=== PATIENT | female | born 1935 ===

== ENCOUNTER 2017-02-19 19:39 | Observation (INO) | payer MEDICARE, MEDICAID ==
--- NOTE | 2017-02-19 19:57 | ED PDOC ---
Arrival/HPI - General Time Seen by Provider: 02/19/17 19:43 Historian: Family (Son) EM Caveat: Dementia - History of Present Illness Narrative History of Present Illness (Text): 02/19/17 19:54 An 81 year old female whose past medical history includes Alzheimer's disease, presents to the emergency department as per son following brief episode of shortness of breath. The patient's son states that at baseline, the patient does not speak . ROS/HPI limited due to patient's dementia.Pt. had taken her liquid meds for her seizure disorder prior.No LOC.No seizure activity. Time/Duration: Prior to Arrival Symptom Onset: Sudden Symptom Course: Unchanged Activities at Onset: Rest, Light Context: Home Past Medical History - Provider Review Nursing Documentation Reviewed: Yes Family/Social History - Physician Review Nursing Documentation Reviewed: Yes Family/Social History: No Known Family HX Allergies/Home Meds Allergies/Adverse Reactions: Allergies No Known Allergies Allergy (Verified 02/19/17 19:53) Home Medications: Home Meds Medication Instructions Recorded Confirmed Unobtainable 02/20/17 02/20/17 Review of Systems - Review of Systems Systems not reviewed;Unavailable: Dementia (Alzheimer's. At baseline, patient does not speak. (normal)) Physical Exam - Physical Exam Physical Exam Limitations: Other (Dementia. At baseline, patient does not speak. ) Vital Signs Reviewed: Yes Vital Signs Temp Pulse Resp BP Pulse Ox 02/19/17 19:54 20 96 02/19/17 19:47 97.9 F 88 20 146/90 96 Temperature: Afebrile Blood Pressure: Normal Pulse: Regular Respiratory Rate: Normal Appearance: Positive for: Well-Appearing, Non-Toxic, Comfortable Pain Distress: None Mental Status: Positive for: Alert and Oriented X 3 - Systems Exam Head: Present: Atraumatic Pupils: Present: PERRL Extroacular Muscles: Present: EOMI Conjunctiva: Present: Normal Mouth: Present: Moist Mucous Membranes Neck: Present: Normal Range of Motion Respiratory/Chest: Present: Clear to Auscultation, Good Air Exchange. No: Respiratory Distress, Accessory Muscle Use Cardiovascular: Present: Regular Rate and Rhythm, Normal S1, S2. No: Murmurs Abdomen: Present: Normal Bowel Sounds. No: Tenderness, Distention, Peritoneal Signs Back: Present: Normal Inspection Upper Extremity: Present: Normal Inspection. No: Cyanosis, Edema Lower Extremity: Present: Normal Inspection. No: Edema Neurological: No: Speech Normal (non-verbal (dementia, normal)) Skin: Present: Warm, Dry, Normal Color. No: Rashes Psychiatric: Present: Alert (Pt alert, awake, non communicative (normal)) Medical Decision Making ED Course and Treatment: 02/19/17 20:00 Impression: An 81 year old female with dementia brought in by son after taking her medication and she began to tear up, cough, and have difficulty breathing. Plan: -- EKG -- Chest X-ray -- Labs -- Reassess and disposition Progress Notes: reviewed EKG, sinus tachycardia at 103 bpm. Incomplete RBBB. Non-specific ST/T wave changes. 02/19/17 21:29 Reviewed radiology, Chest X-ray shows no acute processes. 02/19/17 22:45 Labs reviewed. Elevataed d-dimer: 1.66 noted. CTA Chest ordered. 02/20/17 00:26 Reviewed CTA Chest, shows: Pulmonary arteries: Unremarkable. No pulmonary embolism. Aorta: No acute findings. No thoracic aortic aneurysm. Lungs: Unremarkable. No mass. No consolidation. Pleural space: No significant effusion. No pneumothorax. Heart: Unremarkable. No cardiomegaly. No significant pericardial effusion. No evidence of RV dysfunction. Bones/joints: No acute fracture. No dislocation. Soft tissues: Unremarkable. Lymph nodes: Unremarkable. No enlarged lymph nodes. IMPRESSION: No PE, as detailed above. 02/20/17 00:[address] Morales, who is aware and agrees with plan. Accepts pt in her service. Pt will go to Telemetry observation for dyspnea and seizure disorder. - Lab Interpretations Lab Results: 02/19/17 20:30 02/19/17 20:30 Lab Results 02/19/17 20:30: WBC 5.9, RBC 3.90, Hgb 11.6 L, Hct 34.9 L, MCV 89.5, MCH 29.7, MCHC 33.2, RDW 14.9 H, Plt Count 266, MPV 10.0 02/19/17 20:30: Sodium 140, Potassium 4.6, Chloride 103, Carbon Dioxide 25, Anion Gap 17, BUN 22 H, Creatinine 0.8, Est GFR ( Amer) > 60, Est GFR ( Non-Af Amer) > 60, Random Glucose 114 H, Calcium 8.6, Total Bilirubin 0.3, AST 49 H, ALT 31, Alkaline Phosphatase 92, Lactate Dehydrogenase 637, Total Creatine Kinase 54, Troponin I < 0.01, NT-Pro-B Natriuret Pep 342, Total Protein 8.1, Albumin 4.2, Globulin 3.9, Albumin/Globulin Ratio 1.1 02/19/17 20:30: PT 10.7, INR 0.99, APTT 26.8, D-Dimer, Quantitative 1.66 H I have reviewed the lab results: Yes - RAD Interpretation Radiology Orders: 02/19/17 19:56 CHEST PORTABLE [RAD] Stat 02/19/17 22:45 ANGIO CHEST PE PROTOCOL [CT] Stat - EKG Interpretation Interpreted by ED Physician: Yes Type: 12 lead EKG - Medication Orders Current Medication Orders: Sodium Chloride (Sodium Chloride 0.9%) 1,000 mls @ 100 mls/hr IV .Q10H JENNIFER Last Admin: 02/19/17 23:14 Dose: 100 mls/hr eMAR Start Stop Document 02/19/17 23:14 SS (Rec: 02/19/17 23:15 SS [id number]) Intravenous Solution Start Date 02/19/17 Start Time 23:14 Discontinued Medications Iohexol (Omnipaque 350 100 Ml) Confirm Administered Dose 350 mg .ROUTE .STK-MED ONE Stop: 02/19/17 22:49 - Scribe Statement The provider has reviewed the documentation as recorded by the Madeline Marino Provider Scribe Attestation: All medical record entries made by the Scribe were at my direction and personally dictated by me. I have reviewed the chart and agree that the record accurately reflects my personal performance of the history, physical exam, medical decision making, and the department course for this patient. I have also personally directed, reviewed, and agree with the discharge instructions and disposition. Disposition/Present on Arrival - Present on Arrival Any Indicators Present on Arrival: No History of DVT/PE: No History of Uncontrolled Diabetes: No Urinary Catheter: No History of Decub. Ulcer: No History Surgical Site Infection Following: None - Disposition Have Diagnosis and Disposition been Completed?: Yes Diagnosis: Paroxysmal dyspnea, Seizure disorder Disposition: HOSPITALIZED Disposition Time: 01:32 Patient Plan: Observation Patient Problems: Current Active Problems Problem Status Onset Paroxysmal dyspnea Acute Seizure disorder Acute Condition: STABLE Referrals: Barrett Black MD [Primary Care Provider] - Follow up with primary
[2017-02-19 20:54] LABS: ALB/GLOB RATIO 1.1 (1.1-1.8); ALKALINE PHOSPHATASE 92 U/L (38-126); ALT/SGPT 31 U/L (7-56); AST/SGOT 49 U/L (14-36); BILIRUBIN,TOTAL 0.3 mg/dL (0.2-1.3); BLOOD UREA NITROGEN 22 mg/dL (7-21); CALCIUM 8.6 mg/dL (8.4-10.5); CARBON DIOXIDE 25 mmol/L (21-33); CHLORIDE 103 mmol/L (98-107); GFR AFRICAN-AMERICAN > 60; GLUCOSE,RANDOM 114 mg/dL (70-110); POTASSIUM 4.6 mmol/L (3.6-5.0); SODIUM 140 mmol/L (132-148); TOTAL PROTEIN 8.1 g/dL (5.8-8.3)
[2017-02-19 21:07] LABS: TROPONIN I < 0.01 ng/mL
[2017-02-19 21:09] LABS: HEMATOCRIT 34.9 % (36.0-48.0); MEAN CELL VOLUME 89.5 fl (80.0-105.0); MEAN CORPUSCULAR HEMOGLOBIN 29.7 pg (25.0-35.0); MEAN CORPUSCULAR HGB CONC 33.2 g/dl (31.0-37.0); RED CELL DISTRIBUTION WIDTH 14.9 % (11.5-14.5); WHITE BLOOD COUNT 5.9 10^3/ul (4.5-11.0)
[2017-02-19 21:14] LABS: D DIMER 1.66 mg/L FEU (0-0.50); INR 0.99 (0.93-1.08); PARTIAL THROMBOPLASTIN TIME 26.8 Seconds (23.7-30.8)
[2017-02-19] MEDS ORDERED: Iohexol 350 MG/100 ML VIAL ONE (22:48)
[2017-02-19] MEDS: Sodium Chloride 0.9% 1,000 ML IV SCH (23:14)
--- NOTE | 2017-02-20 00:18 | CT ---
EXAM: CT Angiography Chest With Intravenous Contrast CLINICAL HISTORY: 81 years old, female; Pain; Chest pain; Type not specified; Additional info: SOB TECHNIQUE: Axial computed tomographic angiography images of the chest with intravenous contrast using pulmonary embolism protocol. All CT scans at this facility use one or more dose reduction techniques, viz.: automated exposure control; ma/kV adjustment per patient size (including targeted exams where dose is matched to indication; i.e. head); or iterative reconstruction technique. MIP reconstructed images were created and reviewed. Coronal and sagittal reformatted images were created and reviewed. CONTRAST: 100 mL of OMNI 350 administered intravenously. COMPARISON: DX - CHEST PORTABLE 02/19/2017 8:26:54 PM FINDINGS: Pulmonary arteries: Unremarkable. No pulmonary embolism. Aorta: No acute findings. No thoracic aortic aneurysm. Lungs: Unremarkable. No mass. No consolidation. Pleural space: No significant effusion. No pneumothorax. Heart: Unremarkable. No cardiomegaly. No significant pericardial effusion. No evidence of RV dysfunction. Bones/joints: No acute fracture. No dislocation. Soft tissues: Unremarkable. Lymph nodes: Unremarkable. No enlarged lymph nodes. IMPRESSION: No PE, as detailed above.
[2017-02-20 05:20] VITALS: O2SAT 100
[2017-02-20] MEDS: Sodium Chloride 0.9% 1,000 ML IV SCH (08:45)
--- NOTE | 2017-02-20 11:01 | RAD ---
HISTORY: sob COMPARISON: Concurrent chest CT also performed 02/19/2017 with contrast. FINDINGS: LUNGS: No active pulmonary disease. PLEURA: No significant pleural effusion identified, no pneumothorax apparent. CARDIOVASCULAR: Normal. OSSEOUS STRUCTURES: No significant abnormalities. VISUALIZED UPPER ABDOMEN: Normal. OTHER FINDINGS: A moderate gas filled hiatal hernia is identified with the stomach apparently distended with retained gas as well incidentally. IMPRESSION: No acute cardiopulmonary disease is appreciable at this time. However, a moderate hiatal hernia is appreciated and there is incidental distension of the stomach with gas. This is also seen in separate and chest CT with contrast 02/19/2017.
[2017-02-20 12:36] VITALS: BP 126/74; PULSE 74; RESP 20; TEMP 98.1
--- NOTE | 2017-02-20 15:15 | CON ---
DATE: 02/20/2017 CONSULT SERVICE: Cardiology. REASON FOR CONSULTATION: Cardiac evaluation, had shortness of breath and dyspnea. BRIEF CLINICAL HISTORY: This is an 81-year-old female with past medical history significant for dementia, mostly bed bound with a total care, daughter named Shanti is at bedside, information obtained from the daughter. History of Alzheimer's disease, presented to the emergency room after having choking at home and then feels congested and with short of breath, who brought her. History of seizure disorder. The patient's daughter, Shanti at the bedside she takes care and the patient's total care. Mostly, she sits on the rocking chair and did not get out from out of home for longtime and demented with her total care. PAST MEDICAL HISTORY: Significant for Alzheimer's disease and history of seizure disorder and totally cared by the daughter. CURRENT MEDICATIONS: The patient's daughter states that she take some seizure medication. SOCIAL HISTORY: Denies any history of alcohol abuse. PAST SURGICAL HISTORY: Significant for cholecystectomy many, many years ago. The patient has dementia since 2004, is progressively worsening. REVIEW OF SYSTEMS: As per HPI. PHYSICAL EXAMINATION VITAL SIGNS: Temperature afebrile, heart rate 82, and blood pressure 130/80. HEENT: PERRLA. Extraocular muscles intact. NECK: Supple. No carotid bruits or thyromegaly. CHEST: Clear to auscultation. HEART: S1 and S2 regular. ABDOMEN: Soft. EXTREMITIES: Clubbing and cyanosis negative. DIAGNOSTIC DATA: EKG shows a normal sinus, incomplete right bundle, right ventricular hypertrophy and no acute ST-T changes noted. LABORATORY DATA: Blood workup as follows: WBC 5.9, hemoglobin 11.6, hematocrit 34.9, and platelet count 266. Chemistry shows sodium 140, potassium 4.6, chloride 103, carbon dioxide is 22, anion gap of 25, BUN 17, and creatinine is 0.8. Total protein is 0.01. BNP is 342. IMPRESSION: An 81-year-old female with a past medical history of progressively worsening dementia since 2004 with a total care at home and yesterday had choking sensation was being said and since the patient brought here and feels congested according to family, and history of seizure disorder. Denies any prior episode of chest pain or denies any recent history of rubbing her chest, as did not notice by the daughter. The patient is unable to give any history and information obtained from the daughter, who is sitting at the bedside, name Shanti, who brought here after having choking sensation. RECOMMENDATIONS: We will get lipid profile, TSH, hemoglobin A1c and we will get echo, if the patient allows. If the patient becomes resistant of suggest to discontinue telemetry and pending further Neuro and Pulmonary evaluation, discharge planning. Marty Carrillo MD
[2017-02-20] MEDS ORDERED: levETIRAcetam 500 mg/5ml UD cups PO SCH (18:00)
--- NOTE | 2017-02-20 18:45 | CARD ---
APPROVED REPORT EXAM: Two-dimensional and M-mode echocardiogram with Doppler and color Doppler. INDICATION Chest Pain LVFX 2D DIMENSIONS Left Atrium (2D)3.6 (1.6-4.0cm)IVSd0.7 (0.7-1.1cm) LVDd4.6 (3.9-5.9cm)PWd0.8 (0.7-1.1cm) LVDs2.9 (2.5-4.0cm)FS (%) 36.9 % LVEF (%)66.9 (>50%) M-Mode DIMENSIONS Aortic Root3.50 (2.2-3.7cm)Aortic Cusp Exc.1.60 (1.5-2.0cm) Aortic Valve AoV Peak Dhqesxgb576.0cm/sAoV VTI43.0cmAO Peak GR.16mmHg LVOT Peak Excvowvk511.0cm/sLVOT VTI37.80cmAO Mean GR.6mmHg AI P 1/2 Twlz813td Mitral Valve MV E Pigfmulf066.0cm/sMV A Dtweatub66.4cm/sE/A ratio1.2 TDI Lateral E' Peak V12.80cm/sMedial E' Peak V6.82cm/sE/Lateral E'8.0 E/Medial E'15.0 Pulmonary Valve PV Peak Zfpqtpzu33.1cm/sPV Peak Grad.2mmHg Tricuspid Valve TR Peak Pyrdwuay002as/sRAP QHDGQQKE42jyJjAI Peak Gr.22mmHg [id number] LEFT VENTRICLE The left ventricle is normal size. There is normal left ventricular wall thickness. The left ventricular function is normal.EF-55-60% There is normal LV segmental wall motion. The left ventricular diastolic function is normal. No left ventricle thrombus noted on this study. There is no ventricular septal defect visualized. There is no left ventricular aneurysm. RIGHT VENTRICLE The right ventricle is normal size. There is normal right ventricular wall thickness. The right ventricular systolic function is normal. ATRIA The left atrium size is normal. The right atrium size is normal. AORTIC VALVE The aortic valve is calcified but opens well. There is mild aortic regurgitation. There is no aortic valvular stenosis. There is no aortic valvular vegetation. MITRAL VALVE The mitral valve is thickened but opens well. Mitral annular calcification is mild. Mitral regurgitation is mild to moderate There is no mitral valve stenosis. There is no evidence of mitral valve prolapse. TRICUSPID VALVE The tricuspid valve leaflets are thickened , but open well. There is mild to moderate tricuspid regurgitation.RVSP-32 mmof Hg. There is no tricuspid valve stenosis. There is no tricuspid valve prolapse or vegetation. PULMONIC VALVE The pulmonic valve is not well visualized. GREAT VESSELS The aortic root is normal in size. The ascending aorta is normal in size. The pulmonary artery is normal. The IVC was not visualized. PERICARDIAL EFFUSION There is no pleural effusion. There is no pericardial effusion. <Conclusion> NormalChamber Size. EF-55-60% There is mild aortic regurgitation. Mitral regurgitation is mild to moderate There is mild to moderate tricuspid regurgitation.RVSP-32 mmof Hg. The IVC was not visualized. There is no pericardial effusion. No trhrombus noted.
--- NOTE | 2017-02-20 19:58 | CON ---
PULMONARY CONSULTATION DATE: 02/20/2017 REFERRING PHYSICIAN: Trixie Morales MD REASON FOR CONSULT: Cough and shortness of breath. HISTORY OF PRESENT ILLNESS: This is an 81 years old female who has advanced Alzheimer type dementia according to family. Apparently, family found her with the shortness of breath, had some oral secretion unable to clear, and brought into emergency room. During that process, she is able to cough and clear some of the secretions. Presently, she is lying in the bed and family is at bedside. According to family that is her usual status. They deny any seizure activity. No nausea. No vomiting. No diarrhea reported. PAST MEDICAL HISTORY: Alzheimer type dementia and seizure disorder. ALLERGIES: NONE KNOWN. SOCIAL HISTORY: No smoker. No drinker. FAMILY HISTORY: Not significant cardiopulmonary disease reported. REVIEW OF SYSTEMS: As per history of present illness, an episode of choking. Unable to clear secretion and short of breath, which later on improved, but there is no hemoptysis or hematemesis. No hematuria. No leg swelling. PHYSICAL EXAMINATION: GENERAL: Lying in the bed, no acute distress. VITAL SIGNS: Temperature is 98, heart rate is 74, respiratory rate is 20, blood pressure 126/74, and pulse oximetry 100% on room air. HEENT: Moist mucous membranes. No oral thrush. NECK: Supple. No JVD. LUNGS: Diffused scattered rhonchi. Overall, fair airflow. HEART: S1 and S2. ABDOMEN: Soft, nontender. No organomegaly. EXTREMITIES: There is no edema. NEUROLOGICAL: Awake, alert, nonverbal, does not follow commands, confused. LABORATORY DATA: Shows hemoglobin 11.6, hematocrit 34.9, WBC 5.9, and platelets 266. INR 0.99. PTT is 26. D-dimer is 1.6. Sodium 140, potassium 4.6, chloride 103, bicarbonate 25, BUN 22, creatinine 0.8, glucose 114, calcium 8.6, AST 49, ALT 31, alkaline phosphatase is 92, total protein less than 0.01, and albumin is 4.2. She had a CAT scan of the chest done on arrival in the emergency room, which is negative for any PE. No infiltrate or effusion reported. Her echocardiogram done report is pending. IMPRESSION AND PLAN: Alzheimer type dementia, history of seizure disorder, probably had an episode of aspiration, could not clear it for a while, but finally able to cough it out and clear it. I spoke to family at bedside in detail historically Alzheimer type dementia progress to oropharyngeal dysphagia. We will have speech therapy see the patient and evaluate. Keep head elevated at 45 degrees. She has a mild anemia. We will need outpatient anemia workup and informed about that to the family. Marty Suh MD
--- NOTE | 2017-02-20 22:00 | CON ---
HISTORY OF PRESENT ILLNESS: This is an 81-year-old female with past medical history of dementia, Alzheimer type and also has a history of seizure and son at bedside who says the patient had shortness of breath and the patient does not speak and limited history because of dementia. PAST MEDICAL HISTORY: Seizure and Alzheimer's disease. ALLERGIES: NO KNOWN DRUG ALLERGY. SOCIAL HISTORY: The patient lives at home with the daughter. PHYSICAL EXAMINATION: VITAL SIGNS: Blood pressure 146/90. HEENT: Normocephalic, atraumatic. NECK: Supple. NEUROLOGIC: Cranial nerves II through XII are tested. Pupils reactive. No spontaneous movement of the extremities noted. Mild rigidity was also noted in the upper extremities. Deep tendon reflex is 1+. Both plantars are downgoing. Sensory appears intact. Cerebellar and gait, deferred. IMPRESSION: 1. Seizure disorder. 2. Alzheimer's disease/dementia. PLAN: The patient will continue present medication and we will follow up. We will start her on Keppra and Aricept. Ronald Galicia MD
--- NOTE | 2017-02-20 23:22 | CARD ---
APPROVED REPORT EKG Measurement Heart [id number] <Conclusion> Sinus tachycardia Incomplete right bundle branch block Possible Right ventricular hypertrophy ST & T wave abnormality, consider inferior ischemia Abnormal ECG
== END 2017-02-20 16:32 | disposition home or self-care (01) ==
LOC: ED 19:39 → ERH 02-20 01:33 → 2RNO 02-20 07:10
PROVIDERS: ADMIT Internal Medicine; ATTEND Internal Medicine
DX: R06.00 Dyspnea, unspecified (principal); G40.909 Epilepsy, unspecified, not intractable, without status epilepticus; D64.9 Anemia, unspecified; G30.9 Alzheimer's disease, unspecified; F02.80 Dementia in other diseases classified elsewhere, unspecified severity, without behavioral disturbance, psychotic disturbance, mood disturbance, and anxiety; R00.0 Tachycardia, unspecified; I45.10 Unspecified right bundle-branch block; Z74.01 Bed confinement status; Z90.49 Acquired absence of other specified parts of digestive tract; I51.7 Cardiomegaly
CPT/HCPCS: 71010; 71275; 80053; 82550; 83615; 83880; 84484; 85027; 85378; 85610; 85730; 93005; 93306; 99285; G0378; J7040; Q9967

== ENCOUNTER 2017-06-06 10:50 | Emergency (ER) | payer MEDICARE, MEDICAID ==
[2017-06-06 11:10] VITALS: TEMP 99.4; O2SAT 100
[2017-06-06 11:11] VITALS: BMI 19.3
--- NOTE | 2017-06-06 11:52 | ED PDOC ---
Arrival/HPI - General Chief Complaint: Upper Extremity Problem/Injury Time Seen by Provider: 06/06/17 11:50 Historian: Family (Daughter and son) - History of Present Illness Narrative History of Present Illness (Text): 06/06/17 11:52 This 81 yo female with pmh dementia, seizures, is brought to this ED by daughter and son for evaluation left upper chest bruise, and swelling x 1 day. Daughter stated patient did not have this yesterday. Daughter admits lifting patient from bed to wheelchair often. Denies fall or trauma. Context: Home Past Medical History - Provider Review Nursing Documentation Reviewed: Yes - Reproductive Menopause: Yes - Neurological Hx Alzheimer's Disease: Yes Hx Dementia: Yes Hx Seizures: Yes (feb 2017) - Musculoskeletal/Rheumatological Hx Falls: No - Psychiatric Hx Substance Use: No Family/Social History - Physician Review Nursing Documentation Reviewed: Yes Family/Social History: Other (noncontributory) Smoking Status: Never Smoked Hx Alcohol Use: No Hx Substance Use: No Allergies/Home Meds Allergies/Adverse Reactions: Allergies No Known Allergies Allergy (Verified 02/19/17 19:53) Home Medications: Home Meds Medication Instructions Recorded Confirmed Docusate [Colace] 1 cap PO DAILY 06/06/17 06/06/17 Multivitamin [Daily Maribeth] 1 tab PO DAILY 06/06/17 06/06/17 Tobramycin/Dexamethasone [Tobradex 1 drop EACHEYE DAILY 06/06/17 06/06/17 St Eye Drops] Review of Systems - Review of Systems Systems not reviewed;Unavailable: Other (Information taken from Daughter and son ) Constitutional: Normal. absent: Fatigue, Weight Change, Fevers, Night Sweats Eyes: Normal ENT: Normal Respiratory: Normal. absent: SOB Cardiovascular: Normal. absent: Chest Pain, Palpitations Gastrointestinal: Normal. absent: Abdominal Pain, Nausea, Vomiting Genitourinary Female: Normal. absent: Frequency, Vaginal Bleeding, Vaginal Discharge Musculoskeletal: Other (see hpi) Skin: Normal Neurological: Normal Endocrine: Normal Hemo/Lymphatic: Normal Psychiatric: Normal Physical Exam Vital Signs Temp Pulse Resp BP Pulse Ox 06/06/17 13:00 78 18 168/71 H 100 06/06/17 11:10 99.4 F 73 18 114/38 L 100 Temperature: Afebrile Blood Pressure: Normal Pulse: Regular Respiratory Rate: Normal Appearance: Positive for: Well-Appearing, Non-Toxic, Comfortable Pain Distress: None - Systems Exam Head: Present: Atraumatic, Normocephalic Pupils: Present: PERRL Extroacular Muscles: Present: EOMI Conjunctiva: Present: Normal Mouth: Present: Moist Mucous Membranes Neck: Present: Normal Range of Motion Respiratory/Chest: Present: Clear to Auscultation, Good Air Exchange, Other ((+ ) large swelling with mild ecchymosis left upper chest near left shoulder. No deformity). No: Respiratory Distress, Accessory Muscle Use Cardiovascular: Present: Regular Rate and Rhythm, Normal S1, S2. No: Murmurs Abdomen: Present: Normal Bowel Sounds. No: Tenderness, Distention, Peritoneal Signs Back: Present: Normal Inspection Upper Extremity: Present: Normal Inspection. No: Cyanosis, Edema Lower Extremity: Present: Normal Inspection. No: Edema Neurological: Present: GCS=15, CN II-XII Intact, Speech Normal Skin: Present: Warm, Dry, Normal Color. No: Rashes Psychiatric: Present: Alert, Other ((+) awake) Medical Decision Making ED Course and Treatment: 06/06/17 13:46 Re-evaluation. Patient feels better. Discussed results and plan with patient who expresses understanding. All questions answered and there is agreement with the plan to discharge home with instructions. Patient stable for discharge. Return if symptoms persist or worsen. Re-evaluation Time: 13:46 Reassessment Condition: Re-examined, Improved - RAD Interpretation Narrative RAD Interpretations (Text): 06/06/17 13:38 Patient Name / ID : SHERLYN VALLEJO / [id number] Exam Date : 06/06/2017 12:10:45 ( Approved ) Study Comment : Sex / Age : F / 81Y Creator : Stanton Braun MD Dictator : Stanton Braun MD Drawbench Operator : Manager : Stanton Braun MD Approver2 : Report Date : 06/06/2017 13:16:46 My Comment : PROCEDURE: CT Chest without contrast HISTORY: left upper chest bruise/swelling r/o fx COMPARISON: None. TECHNIQUE: Contiguous axial images were obtained through the chest without intravenous contrast enhancement. Sagittal and coronal reconstructions were performed. Radiation dose (DLP): 221 mGy-cm. This CT exam was performed using one or more of the following dose reduction techniques: Automated exposure control, adjustment of the mA and/or kV according to patient size, and/or use of iterative reconstruction technique. FINDINGS: LUNGS: There is a small amount of pleural parenchymal scarring at the right lung base and the right lung apex. This is unchanged. MEDIASTINUM: Unremarkable thoracic aorta. No aneurysm. Normal sized heart. Main pulmonary artery unremarkable. No vascular congestion. No lymphadenopathy. PLEURA: No pleural fluid. No pneumothorax. BONES: No fracture. No destructive lesion. UPPER ABDOMEN: Moderate size hiatal hernia OTHER FINDINGS: There is severe edema and swelling of the left pectoral muscle. Subcutaneous edema is seen in the left axilla. There is no associated rib fracture IMPRESSION: Severe edema and swelling of the left pectoral muscle. No associated rib or shoulder fracture 06/06/17 13:50 Shoulder x-rays: no fx Radiology Orders: 06/06/17 11:50 CHEST W/O CONTRAST [CT] Stat 06/06/17 11:51 SHOULDER LEFT [RAD] Stat Disposition/Present on Arrival - Present on Arrival Any Indicators Present on Arrival: No History of DVT/PE: No History of Uncontrolled Diabetes: No Urinary Catheter: No History of Decub. Ulcer: Yes History Surgical Site Infection Following: None - Disposition Have Diagnosis and Disposition been Completed?: Yes Diagnosis: Hematoma of chest wall Disposition: HOME/ ROUTINE Disposition Time: 13:52 Patient Plan: Discharge Condition: GOOD Discharge Instructions (ExitCare): Hematoma (ED) Additional Instructions: Call private doctor for follow up visit. Apply cold compress over the area of bruise for 2 days, then apply warmth compress as needed. Call Orthopedist for revaluation. Return to emergency if symptoms worsen. Referrals: Barrett Black MD [Primary Care Provider] - Follow up with primary Forms: [employer] (Danish)
--- NOTE | 2017-06-06 12:33 | RAD ---
PROCEDURE: Radiographs of the Left Shoulder HISTORY: pain COMPARISON: No prior. FINDINGS: BONES: No fracture or definite destructive bony lesion appreciated. JOINTS: No subluxation or dislocation identified. The acromioclavicular and glenohumeral joints appear mildly degenerated with osteophytes developed at both including at the inferior margins of the acromioclavicular joint. Cortical sclerosis and joint space narrowing also identified SOFT TISSUES: At both joints. OTHER FINDINGS: None. IMPRESSION: Degenerative joint disease appreciate without fracture or dislocation appreciated.
--- NOTE | 2017-06-06 13:18 | CT ---
PROCEDURE: CT Chest without contrast HISTORY: left upper chest bruise/swelling r/o fx COMPARISON: None. TECHNIQUE: Contiguous axial images were obtained through the chest without intravenous contrast enhancement. Sagittal and coronal reconstructions were performed. Radiation dose (DLP): 221 mGy-cm. This CT exam was performed using one or more of the following dose reduction techniques: Automated exposure control, adjustment of the mA and/or kV according to patient size, and/or use of iterative reconstruction technique. FINDINGS: LUNGS: There is a small amount of pleural parenchymal scarring at the right lung base and the right lung apex. This is unchanged. MEDIASTINUM: Unremarkable thoracic aorta. No aneurysm. Normal sized heart. Main pulmonary artery unremarkable. No vascular congestion. No lymphadenopathy. PLEURA: No pleural fluid. No pneumothorax. BONES: No fracture. No destructive lesion. UPPER ABDOMEN: Moderate size hiatal hernia OTHER FINDINGS: There is severe edema and swelling of the left pectoral muscle. Subcutaneous edema is seen in the left axilla. There is no associated rib fracture IMPRESSION: Severe edema and swelling of the left pectoral muscle. No associated rib or shoulder fracture
[2017-06-06 14:01] VITALS: BP 157/79; PULSE 77; RESP 16
== END 2017-06-06 14:48 | disposition home or self-care (01) ==
LOC: ED 10:50
DX: S20.212A Contusion of left front wall of thorax, initial encounter (principal); X58.XXXA Exposure to other specified factors, initial encounter; Y92.89 Other specified places as the place of occurrence of the external cause

== ENCOUNTER 2017-06-30 15:13 | Emergency (ER) | payer MEDICARE, MEDICAID ==
[2017-06-30 15:25] VITALS: BMI 22.2
--- NOTE | 2017-06-30 15:33 | ED PDOC ---
Arrival/HPI - General Time Seen by Provider: 06/30/17 15:23 Historian: Patient, Family, EMS - History of Present Illness Narrative History of Present Illness (Text): 06/30/17 15:26 81 y/o female, pmh including demantia and seizure, nkda, limited HPI can be obtained as the patient has chronic demantia, biba with the family saying that the patient has been coughing with chest congestion x 3 days and fever x 1 day with tmax 101F. As per family, patient resides with them and there is +sick contact at home with URI symptoms. As per family, there is no change in energy level. Pt. eats and drinking well, diaper change amount and quantity is the same as usual healthy state, no nausea or vomiting, no night sweat, no dizziness , no rash, no numbness or tingling, no other medical or psychological complaints. Past Medical History - Provider Review Nursing Documentation Reviewed: Yes - Neurological Hx Alzheimer's Disease: Yes Hx Dementia: Yes Hx Seizures: Yes (feb 2017) - Musculoskeletal/Rheumatological Hx Falls: No - Psychiatric Hx Substance Use: No Family/Social History - Physician Review Nursing Documentation Reviewed: Yes Family/Social History: Unknown Family HX Smoking Status: Never Smoked Hx Alcohol Use: No Hx Substance Use: No Allergies/Home Meds Allergies/Adverse Reactions: Allergies No Known Allergies Allergy (Verified 02/19/17 19:53) Review of Systems - Review of Systems Systems not reviewed;Unavailable: Dementia Constitutional: Fevers. absent: Fatigue Eyes: absent: Vision Changes ENT: absent: Hearing Changes Respiratory: Cough, Sputum. absent: SOB, Wheezing Cardiovascular: absent: Chest Pain, Syncope Gastrointestinal: absent: Abdominal Pain, Diarrhea, Nausea, Vomiting Skin: absent: Rash, Pruritis, Ulcer, Cellulitis Physical Exam Vital Signs Reviewed: Yes Vital Signs Temp Pulse Resp BP Pulse Ox 06/30/17 19:37 80 17 117/80 96 06/30/17 18:34 85 17 117/72 95 06/30/17 17:27 79 17 118/70 96 06/30/17 15:38 97.9 F 81 20 116/67 95 Temperature: Afebrile Blood Pressure: Normal Pulse: Regular Respiratory Rate: Normal Appearance: Positive for: Well-Appearing, Non-Toxic, Comfortable Pain Distress: None Mental Status: Positive for: Alert and Oriented X 3 - Systems Exam Head: Present: Atraumatic, Normocephalic Pupils: Present: PERRL Extroacular Muscles: Present: EOMI Conjunctiva: Present: Normal Mouth: Present: Moist Mucous Membranes Nose (External): Present: Atraumatic. No: Abrasion, Contusion, Laceration Nose (Internal): Present: Normal Inspection, No Active Bleeding. No: Rhinorrhea , Septal Hematoma, Epistaxis Neck: Present: Normal Range of Motion, Trachea Midline. No: Meningeal Signs, MIDLINE TENDERNESS, Paraspinal Tenderness, Lymphadenopathy Respiratory/Chest: Present: Clear to Auscultation, Good Air Exchange, Rales (RLL ), Rhonchi (RLLE). No: Respiratory Distress, Accessory Muscle Use, Wheezes, Decreased Breath Sounds, Retracting Cardiovascular: Present: Regular Rate and Rhythm, Normal S1, S2. No: Murmurs Abdomen: Present: Normal Bowel Sounds. No: Tenderness, Distention, Peritoneal Signs, Rebound, Guarding Back: Present: Normal Inspection Upper Extremity: Present: Normal Inspection. No: Cyanosis, Edema Lower Extremity: Present: Normal Inspection. No: Edema Neurological: Present: Motor Func Grossly Intact, Other (limited physical examination can be performed, limited neurological examination can be performed. ) Skin: Present: Warm, Dry, Normal Color. No: Rashes Psychiatric: Present: Alert, Oriented x 3, Normal Insight, Normal Concentration Medical Decision Making ED Course and Treatment: 06/30/17 15:42 -labs/ua/rapid flu -chest xray -IVF -Observe and reassess 06/30/17 15:42 -I was noted by the [employer]ATION [employer]NCE OFFICER Mariam that the daughter doesn't want the patient to have lab works and only requesting chest xray with rapid flu. Will check if the daughter is the power of civil litigation attorney. -Dr. Hamilton Burgos notify, speaking to the patient's family. 06/30/17 15:54 -As per documentation, there is no power of civil litigation attorney on this patient. -Chest xray is positive for pneumonia, DR. Burgos notify as he is speaking to the family. I strongly advised labs and IV antibiotics with preferrably inpatient treatment. 06/30/17 16:08 -Daughter agreed to the lab work and treatment now, IV rocephine and azithromycin ordered. 01/28/18 18:30 -EKG: NSR @ 78 BPM, no ST elevation or depression, T wave inversion on lead V3. -Chest xray show there is pneumonia -Negative influenza -Labs not resulted as the patient's family daughters plus the son refusing any lab work as they stated that their mother is doing great and just need the antibiotic, offered admission to the family and the patient but they all declined which they preferred outpatient oral antibiotic, prefer oral solution antibiotic to go home on. Dr. Burgos notify and on the bedside talking to the patient, daughters plus the son as they insist to talk to Dr. Burgos about this case. -Dr. Lassiter contacted about the situation about the patient refused lab work and request outpatient follow up, Dr. Lassiter stated that the patient can be discharged home as he will see the patient this upcoming Saturday07/02/2017 as house call with lachelle coronel. -The patient plus the daughters and son refuses to stay in the Emergency Room ( ER) to continue the care and wishes to leave the emergency department against my medical advice. Patient plus the daughters and son were told that staying in the ER is necessary and a full explanation of the reasons why was given, and understood by the patient plus the daughters and son with alert and oriented x4. The risk of leaving were explained in laymans term and including but not limited to sepsis, worsening of pneumonia to empyema, pleural effusion, sepsis, organ failures, pain, worsening of condition, permanent disability and from an undiagnosed or untreated condition. The patient plus the daughters and son accepts these risks, and is in my judgment is competent and capable of understanding the clinical situation and explanation of the risk of leaving. Patient plus the daughters and son were given the opportunity to ask questions and change mind. Patient plus the daughters and son verbally expressed understanding of the risks of having outpatient pneumonia follow up vs. inpatient with the risks explained as above. The patient plus the daughters and son were instructed regarding the best care for the present symptoms, and to follow up as soon as possible with the primary care doctor including specialist or return to the emergency department at an y time for continuing care. -Dr. Burgos agreed with the family/patient's outpatient plan and the pmd Dr. Lassiter suggestion for outpatient treatment with stop torturing the patient for lab works as we have multiple staffs try including straight straw and sonogram guided on the bed side, refusing central line and any advanced procedures for lab works. Family discussed and given the option for admission but declined. Dr. Burgos and [employer] OFFICER Mariam on the bed side, explained to the patient, all agreed to stop lab work and outpatient follow up. -Levaquin 750mg po order for the patient. normal BUN/Creatinene level from the 02/2017 lab work. -Pt. is vitally stable and clinically stable at this time for outpatient follow up. Pt. live with the daughters and son which they will have close eye on the patient including oral intake and output on the diapers, understand that they can return to the ER anytime by calling the ambulance or if the patient has any mental status change or energy level. -Patient plus the daughters and son were discussed about the side effect of the levaquin and fluoroquinolones class including prolong QT and achilles tendon ruptures, advised avoid gym and exercise while taking this medication, patient plus the daughters and son verbally expressed understanding. -Discharge home with levaquin po solution, robitussin dm, tylenol solution, stay hydrated, bed rest, follow up with your own pmd Dr. Lassiter within 2 days, return to the ER for any new or worsening signs or symptoms. - Lab Interpretations Microbiology Results: Microbiology Results 06/30/17 16:05 Blood-Venous Blood Culture - Preliminary NO GROWTH AFTER 48 HOURS Lab Results: Lab Results 06/30/17 16:30: Influenza Typ A,B (EIA) Negative for flu a/b - RAD Interpretation Radiology Orders: 06/30/17 15:34 CHEST PORTABLE [RAD] Stat - EKG Interpretation EKG Interpretation (Text): 06/30/17 16:09 NSR @ 78 BPM, no ST elevation or depression, T wave inversion on lead V3. Interpreted by ED Physician: Yes Type: 12 lead EKG - Medication Orders Current Medication Orders: Discontinued Medications Ceftriaxone Sodium (Rocephin 1 Gram Ivpb) 1 gm in 100 mls @ 200 mls/hr IVPB STAT STA PRN Reason: Protocol Stop: 06/30/17 16:35 Azithromycin (Zithromax 500mg In Ns) 500 mg in 250 mls @ 167 mls/hr IVPB STAT STA PRN Reason: Protocol Stop: 06/30/17 17:35 Levofloxacin (Levaquin) 750 mg PO STAT STA Stop: 06/30/17 18:30 Last Admin: 06/30/17 18:55 Dose: 750 mg - PA / [employer]CH SALES AND SERVICE REPRESENTATIVE / Resident Statement / has reviewed & agrees with the documentation as recorded. / has examined the patient and agrees with the treatment plan. Disposition/Present on Arrival - Present on Arrival Any Indicators Present on Arrival: No History of DVT/PE: No History of Uncontrolled Diabetes: No Urinary Catheter: No History of Decub. Ulcer: No History Surgical Site Infection Following: None - Disposition Have Diagnosis and Disposition been Completed?: Yes Diagnosis: Pneumonia, Non-compliance Disposition: HOME/ ROUTINE Disposition Time: 18:38 Patient Plan: Discharge Condition: GOOD Additional Instructions: -Discharge home with levaquin po solution, robitussin dm, tylenol solution, stay hydrated, bed rest, follow up with your own pmd Dr. Lassiter within 2 days, return to the ER for any new or worsening signs or symptoms. Prescriptions: Acetaminophen [Acetaminophen Oral Soln] 15.5 ml PO QID PRN #300 ml PRN Reason: Other guaiFENesin/Dextromethorphan [guaiFENesin-DM] 10 ml PO QID PRN #250 ml PRN Reason: Other Levofloxacin 30 ml PO DAILY #210 ml Referrals: Thanh Lassiter DO [Family Provider] - Follow up with primary Forms: [employer] ([place])
[2017-06-30 15:39] VITALS: TEMP 97.9
--- NOTE | 2017-06-30 15:55 | RAD ---
HISTORY: cough/fever/ dementia COMPARISON: 02/19/2017. FINDINGS: LUNGS: The lungs are well inflated. There is patient rotation to the right. Allowing for this, there is a right retrocardiac opacity. No focal consolidation in the left lung. PLEURA: No significant pleural effusion identified, no pneumothorax apparent. CARDIOVASCULAR: Normal. OSSEOUS STRUCTURES: Within normal limits for the patient's age. VISUALIZED UPPER ABDOMEN: Normal. OTHER FINDINGS: None. IMPRESSION: Limited portable examination, question of right lower lobe pneumonia. Follow-up PA and lateral radiographs are recommended for further evaluation.
[2017-06-30] MEDS ORDERED: cefTRIAXone 1 gm 1 GM/100 ML BAG IVPB STA (16:06)
[2017-06-30] MEDS ORDERED: Azithromycin 500MG/NS 250ml 500 MG/250 ML BAG IVPB STA (16:06)
[2017-06-30 17:28] VITALS: RESP 17
[2017-06-30] MEDS ORDERED: levoFLOXacin 750 MG TAB PO STA (18:29)
[2017-06-30 19:38] VITALS: BP 117/80; PULSE 80; O2SAT 96
--- NOTE | 2017-07-01 17:26 | CARD ---
APPROVED REPORT EKG Measurement Heart [id number] <Conclusion> Normal sinus rhythm Right bundle branch block Possible Inferior infarct, age undetermined Abnormal ECG
== END 2017-06-30 19:40 | disposition home or self-care (01) ==
LOC: ED 15:13
DX: J18.9 Pneumonia, unspecified organism (principal); Z91.19 Patient's noncompliance with other medical treatment and regimen

== ENCOUNTER 2017-07-06 16:48 | Inpatient (IN) | payer MEDICARE, MEDICAID ==
[2017-07-06 17:19] VITALS: BMI 23.4
[2017-07-06] MEDS: Albuterol-Ipratrop 3 mg / 0.5 (3 ml) UD IH SCH ×3 (17:20→18:00)
--- NOTE | 2017-07-06 17:26 | ED PDOC ---
Arrival/HPI - General Chief Complaint: Shortness Of Breath Time Seen by Provider: 07/06/17 17:00 Historian: Patient - History of Present Illness Narrative History of Present Illness (Text): 07/06/17 17:22 81 y/o female, pmh including demantia and seizure with recent pneumonia diagnosed 06/30/2017 which she completed 5 day courses of levaquin, limited HPI can be obtained as the patient is demantia and non-verbal as baseline, biba with the son and daughters, c/o excessive coughing and shortness of breath at home for the past 2 days. As per family, the patient has been eating and drinking well, coughing with excessive phelgm associated with shortness of breath, unable to spit up and been swallowing it, eating with choking occasionally as well, fever resolved after the levaquin, no night sweat, no dizziness, no rash, no other medical or psychological complaints. Past Medical History - Provider Review Nursing Documentation Reviewed: Yes - Infectious Disease Hx of Infectious Diseases: None - Cardiac Hx Cardiac Disorders: No - Pulmonary Hx Pneumonia: Yes - Neurological Hx Alzheimer's Disease: Yes Hx Dementia: Yes Hx Seizures: Yes (feb 2017) - HEENT Hx HEENT Disorder: No - Renal Hx Renal Disorder: No - Endocrine/Metabolic Hx Endocrine Disorders: No - Hematological/Oncological Hx Blood Disorders: No - Integumentary Hx Dermatological Disorder: No - Musculoskeletal/Rheumatological Hx Musculoskeletal Disorders: No Hx Falls: No - Gastrointestinal Hx Gastrointestinal Disorders: No - Genitourinary/Gynecological Hx Genitourinary Disorders: No - Psychiatric Hx Psychophysiologic Disorder: No Hx Substance Use: No - Anesthesia Hx Anesthesia: No Family/Social History - Physician Review Nursing Documentation Reviewed: Yes Family/Social History: Unknown Family HX Smoking Status: Never Smoked Hx Alcohol Use: No Hx Substance Use: No Allergies/Home Meds Allergies/Adverse Reactions: Allergies No Known Allergies Allergy (Verified 07/06/17 16:57) Home Medications: Home Meds Medication Instructions Recorded Confirmed Levofloxacin 750 mg PO DAILY 07/06/17 07/06/17 Review of Systems - Review of Systems Systems not reviewed;Unavailable: Dementia Constitutional: absent: Fevers Respiratory: Cough, Sputum. absent: SOB, Wheezing Cardiovascular: absent: Chest Pain Gastrointestinal: absent: Abdominal Pain, Diarrhea, Nausea, Vomiting Skin: absent: Rash, Pruritis, Skin Lesions Physical Exam Vital Signs Reviewed: Yes Vital Signs Temp Pulse Resp BP Pulse Ox 07/06/17 20:58 77 20 98/70 L 100 07/06/17 19:20 18 101/72 98 07/06/17 17:11 14 100 07/06/17 17:02 97.8 F 99 H 18 136/92 H 96 Temperature: Afebrile Blood Pressure: Normal Pulse: Regular Respiratory Rate: Normal Appearance: Positive for: Well-Appearing, Non-Toxic, Comfortable Pain Distress: None - Systems Exam Head: Present: Atraumatic, Normocephalic Pupils: Present: PERRL Extroacular Muscles: Present: EOMI Conjunctiva: Present: Normal Mouth: Present: Moist Mucous Membranes Neck: Present: Normal Range of Motion, Trachea Midline. No: MIDLINE TENDERNESS , Lymphadenopathy Respiratory/Chest: Present: Wheezes, Decreased Breath Sounds, Rhonchi. No: Accessory Muscle Use, Rales, Retracting, Tachypneic, Tender to Palpation Cardiovascular: Present: Regular Rate and Rhythm, Normal S1, S2. No: Murmurs Abdomen: Present: Normal Bowel Sounds. No: Tenderness, Distention, Peritoneal Signs, Rebound, Guarding Back: Present: Normal Inspection Upper Extremity: Present: Normal Inspection. No: Cyanosis, Edema Lower Extremity: Present: Normal Inspection. No: Edema Neurological: Present: GCS=15, Motor Func Grossly Intact Skin: Present: Warm, Dry, Normal Color. No: Rashes Psychiatric: Present: Alert, Oriented x 3, Normal Insight, Normal Concentration Medical Decision Making ED Course and Treatment: 07/06/17 17:28 -labs/blood culture -Duoneb/solumedrol -EKG -CXR -IVF after BNP result\ed -Observe and reassess 07/06/17 19:58 -EKG: SR @ 99 BPM, no acute ST elevation or depression, no T wave inversion, compared with previous ekg. -Chest ray: ER wet read: mild pneumonia on the RLL compared with previous chest xray -Labs are non-significant except hgb 9.6 from 11.6 -UA and urine culture ordered, pending for result -IV rocephine and azithromycin ordered. -On sail maker, pt. has dropping of oxygen down to 92 % on room air initially on arrival which immediately on the oxygen 2L, will need admission for admission. Pt. will be admitted for failure of outpatient treatment. 07/06/17 20:07 -I spoke to the admitting physician Dr. Lassiter, discussed about the case/labs/ radiology results, request Dr. Rehman for routine consult, agreed on the admission to his service and will follow up the care. -I discussed with Dr. Mckeon and examined the patient as well, will put in the admission. 07/06/17 20:09 -BNP elevated 1190, will maintenance at 60cc/hr. - Lab Interpretations Lab Results: 07/06/17 17:54 07/06/17 19:00 Lab Results 07/06/17 19:00: Sodium 139, Potassium 3.9, Chloride 103, Carbon Dioxide 23, Anion Gap 17, BUN 17, Creatinine 0.6 L, Est GFR ( Amer) > 60, Est GFR ( Non-Af Amer) > 60, Random Glucose 154 H, Calcium 8.8, Magnesium 1.7, Total Bilirubin 0.3, AST 43 H, ALT 42, Alkaline Phosphatase 99, NT-Pro-B Natriuret Pep 1190 H, Total Protein 6.8, Albumin 3.2, Globulin 3.5, Albumin/Globulin Ratio 0.9 L 07/06/17 18:15: Influenza Typ A,B (EIA) Negative for flu a/b 07/06/17 17:54: WBC 9.1 D, RBC 3.38 L, Hgb 9.6 L D, Hct 29.5 L, MCV 87.3, MCH 28.4, MCHC 32.5, RDW 15.3 H, Plt Count 276, MPV 8.8, Gran % 84.7 H, Lymph % ( Auto) 9.3 L, Talbot % (Auto) 5.6, Eos % (Auto) 0.3 L, Baso % (Auto) 0.1, Gran # 7.69 H, Lymph # (Auto) 0.8 L, Talbot # (Auto) 0.5, Eos # (Auto) 0.0, Baso # (Auto ) 0.01 - RAD Interpretation Radiology Orders: 07/06/17 17:16 CHEST PORTABLE [RAD] Stat Pasteurizer Helper: Radiologist - EKG Interpretation EKG Interpretation (Text): 07/06/17 17:30 -EKG: SR @ 99 BPM, no acute ST elevation or depression, no T wave inversion, compared with previous ekg. Interpreted by ED Physician: Yes Type: 12 lead EKG - Medication Orders Current Medication Orders: Albuterol/Ipratropium (Duoneb 3 Mg/0.5 Mg (3 Ml) Ud) 3 ml IH [id number] [facility] Last Admin: 07/07/17 14:17 Dose: 3 ml Sodium Chloride (Sodium Chloride 0.9%) 1,000 mls @ 60 mls/hr IV .[id number] [facility] Last Admin: 07/07/17 13:12 Dose: Doxycycline Hyclate 100 mg/ (Sodium Chloride) 100 mls @ 100 mls/hr IVPB Q12 JENNIFER PRN Reason: Protocol Stop: 07/16/17 10:01 Last Admin: 07/07/17 10:43 Dose: 100 mls/hr eMAR Start Stop Document 07/07/17 10:43 JFR (Rec: 07/07/17 10:43 JFR [id number]) Intravenous Solution Start Date 07/07/17 Start Time 10:43 Cefepime HCl (Maxipime 1gm) 1 gm in 100 mls @ 100 mls/hr IVPB Q8 JENNIFER PRN Reason: Protocol Stop: 07/15/17 14:01 Discontinued Medications Albuterol/Ipratropium (Duoneb 3 Mg/0.5 Mg (3 Ml) Ud) 3 ml IH Q15M [facility] Stop: 07/06/17 17:46 Last Admin: 07/06/17 18:00 Dose: 3 ml Ceftriaxone Sodium (Rocephin 1 Gram Ivpb) 1 gm in 100 mls @ 200 mls/hr IVPB STAT STA PRN Reason: Protocol Stop: 07/06/17 18:52 Last Admin: 07/06/17 18:45 Dose: 200 mls/hr eMAR Start Stop Document 07/06/17 18:45 RG (Rec: 07/06/17 20:12 RG [id number]) Intravenous Solution Start Date 07/06/17 Start Time 18:45 End Date 07/06/17 End time 19:15 Total Infusion Time 30 Azithromycin (Zithromax 500mg In Ns) 500 mg in 250 mls @ 167 mls/hr IVPB STAT STA PRN Reason: Protocol Stop: 07/06/17 19:52 Last Admin: 07/06/17 20:12 Dose: 167 mls/hr eMAR Start Stop Document 07/06/17 20:12 RG (Rec: 07/06/17 20:12 [id number]) Intravenous Solution Start Date 07/06/17 Start Time 20:12 Sodium Chloride (Sodium Chloride 0.9%) 1,000 mls @ 100 mls/hr IV .Q10H JENNIFER Methylprednisolone (Solu-Medrol) 125 mg IVP STAT STA Stop: 07/06/17 17:21 Last Admin: 07/06/17 18:00 Dose: 125 mg IVP Administration Document 07/06/17 18:00 RG (Rec: 07/06/17 18:38 RG [id number]) Charges for Administration # of IVP Administrations 1 - PA / AUTOMOTIVE HARDWARE ENGINEER / Resident Statement /DO has reviewed & agrees with the documentation as recorded. / has examined the patient and agrees with the treatment plan. Disposition/Present on Arrival - Present on Arrival Any Indicators Present on Arrival: No History of DVT/PE: No History of Uncontrolled Diabetes: No Urinary Catheter: No History of Decub. Ulcer: No History Surgical Site Infection Following: None - Disposition Have Diagnosis and Disposition been Completed?: Yes Diagnosis: Pneumonia, Failure of outpatient treatment, Anemia, Hypoxic Disposition: HOSPITALIZED Disposition Time: 17:29 Patient Plan: Admission, Telemetry Patient Problems: Current Active Problems Problem Status Onset Pneumonia Acute Failure of outpatient treatment Acute Anemia Acute Hypoxic Acute Condition: STABLE
[2017-07-06] MEDS ORDERED: cefTRIAXone 1 gm 1 GM/100 ML BAG IVPB STA (18:23)
[2017-07-06] MEDS ORDERED: Azithromycin 500MG/NS 250ml 500 MG/250 ML BAG IVPB STA (18:23)
[2017-07-06 18:26] LABS: BASO # 0.01 K/mm3 (0.0-2.0); BASO % 0.1 % (0.0-3.0); EOS % 0.3 % (1.5-5.0); GRAN # 7.69 (1.4-6.5); GRAN % 84.7 % (50.0-68.0); HEMOGLOBIN 9.6 g/dL (12.0-16.0); LYMPH # 0.8 (1.2-3.4); LYMPH % 9.3 % (22.0-35.0); MEAN CELL VOLUME 87.3 fl (80.0-105.0); MEAN CORPUSCULAR HEMOGLOBIN 28.4 pg (25.0-35.0); MEAN CORPUSCULAR HGB CONC 32.5 g/dl (31.0-37.0); MEAN PLATELET VOLUME 8.8 fl (7.0-11.0); MONO # 0.5 (0.1-0.6); MONO % 5.6 % (1.0-6.0); RBC 3.38 10^6/uL (3.5-6.1); RED CELL DISTRIBUTION WIDTH 15.3 % (11.5-14.5); WHITE BLOOD COUNT 9.1 10^3/ul (4.5-11.0)
[2017-07-06] MEDS ORDERED: Sodium Chloride 0.9% 1,000 ML IV SCH (19:30)
[2017-07-06 19:55] LABS: ALB/GLOB RATIO 0.9 (1.1-1.8); ALBUMIN 3.2 g/dL (3.0-4.8); ALT/SGPT 42 U/L (7-56); AST/SGOT 43 U/L (14-36); BLOOD UREA NITROGEN 17 mg/dL (7-21); CALCIUM 8.8 mg/dL (8.4-10.5); GFR AFRICAN-AMERICAN > 60; GFR NON-AFRICAN AMERICAN > 60; MAGNESIUM 1.7 mg/dL (1.7-2.2)
[2017-07-06 20:03] LABS: B-TYPE NATRIURETIC PEPTIDE 1190 pg/mL (0-450)
[2017-07-06] MEDS: Sodium Chloride 0.9% 1,000 ML IV SCH (20:10)
--- NOTE | 2017-07-07 08:49 | RAD ---
HISTORY: cough, recent pneumonia COMPARISON: 06/30/2017 FINDINGS: LUNGS: No active pulmonary disease. PLEURA: No significant pleural effusion identified, no pneumothorax apparent. CARDIOVASCULAR: Normal. OSSEOUS STRUCTURES: No significant abnormalities. VISUALIZED UPPER ABDOMEN: Hiatal hernia OTHER FINDINGS: None. IMPRESSION: No active disease.
--- NOTE | 2017-07-07 11:53 | CARD ---
APPROVED REPORT EKG Measurement Heart [id number] [id number] <Conclusion> Sinus rhythm with occasional and consecutive premature ventricular complexes and fusion complexes Low voltage QRS Cannot rule out Inferior infarct, age undetermined Abnormal ECG
[2017-07-07] MEDS: Sodium Chloride 0.9% 1,000 ML IV SCH (13:12)
[2017-07-07] MEDS: Cefepime 1gm in NS 100ml 1 GM/100 ML BAG IVPB SCH ×2 (14:00→22:37)
[2017-07-07] MEDS: Albuterol-Ipratrop 3 mg / 0.5 (3 ml) UD IH SCH ×2 (14:17→22:15)
--- NOTE | 2017-07-08 00:37 | CON ---
DATE: 07/07/2017 PULMONARY CONSULTATION HISTORY OF PRESENT ILLNESS: Ms. Muñiz is an 81-year-old woman who was admitted with bronchopneumonia. The patient has a history of dementia and seizures. She had a recent pneumonia in late June. She was readmitted to the hospital after inpatient and outpatient treatments. The family states that the patient has excessive coughing and shortness of breath for two days prior to admission. I have discussed the problems with the patient's son. The history is as before; the patient had been eating and drinking; the cough became more progressive; she was short of breath and unable to expectorate. PAST MEDICAL HISTORY: Has been reviewed, history of dementia, Alzheimer's, history of seizures, previous pneumonia. SOCIAL HISTORY: Never smoked. No occupational exposure. No alcohol use. No substance abuse. ALLERGIES: None. FAMILY HISTORY: Unavailable. HOME MEDICATIONS: Include Levaquin 750 mg daily. REVIEW OF SYSTEMS: Gleaned from the chart; other than the dementia, cough, sputum, and difficulty breathing, there are no other abnormalities noted. Patient has Alzheimer's dementia and seizures. PHYSICAL EXAMINATION: GENERAL: She is resting comfortably in bed, in no acute distress. VITAL SIGNS: She is afebrile, 97.8; pulse is 80; respiratory rate of 18; blood pressure 130/90; pulse ox 96% on supplemental oxygen. HEENT: Normocephalic and atraumatic. Pupils PERRLA. EOMs full. Conjunctivae normal. NECK: Supple. No JVD. No lymphadenopathy. No bruit. HEART: Regular rhythm. S1, S2 without murmur, gallop, or rub. CHEST: Minimal wheezing and rhonchi. These findings are not extensive. ABDOMEN: Soft. Bowel sounds normoactive without mass, guarding, rebound, or organomegaly. EXTREMITIES: Reveal no clubbing, cyanosis, or edema. There is no Homans' sign. NEUROLOGIC: Patient is poorly responsive, unchanged according to the patient's son. SKIN: Warm and dry. No rash or excoriations. LYMPH NODES: Lymphadenopathy is not present in the supraclavicular notch, nor in the cervical, inguinal, or axillary areas. LABORATORY STUDIES: Have been reviewed. Chest x-ray was read as normal by Radiology. House staffs say that there is a new right lower lobe infiltrate, I am unable to see this when compared to the previous films. White count is 9000, hemoglobin 9.6, hematocrit of 29.5. Chemistries show sodium of 139, potassium , chloride 103, CO2 of 23, BUN 17, creatinine 0.6. AST 43. BNP 1190 consistent with congestive heart failure/pulmonary vascular congestion. EKG: Sinus rhythm, nonspecific ST-T wave changes. CLINICAL IMPRESSION: 1. Status post pneumonia. 2. Coughing. 3. Inability to expectorate. 4. No new findings on the x-ray at this time. 5. Elevated BNP consistent with pulmonary vascular congestion. 6. Seizure disorder. 7. Alzheimer's dementia. PLAN: Agree with treatments started by house officers. Continue inhaled bronchodilators for wheezing that I did not hear at this time. Patient should be evaluated by Cardiology for pulmonary vascular congestion. Followup x-ray, good PA and lateral in the morning to make sure that there is no further infiltrates, with pulmonary toilet as essential. I discussed with nursing and Respiratory. We will follow closely with you. Edward Hernandez MD
--- NOTE | 2017-07-08 03:02 | CON ---
DATE: 07/07/2017 CHIEF COMPLAINT: Shortness of breath and weakness x several days. HISTORY OF PRESENT ILLNESS: This is an 81-year-old female with history of dementia, seizures, recently treated with Levaquin for pneumonia. Patient's son is at the bedside, who states that the patient is given the Levaquin, he crushed the pill and the patient had been vomiting, unable to eat well and patient has been coughing, having low-grade fevers and he also states that upon feeding her, she has many chances of choking and not able to eat her food. PAST MEDICAL HISTORY: Significant for Alzheimer's dementia, seizures, recent pneumonia. PAST SURGICAL HISTORY: Noncontributory. ALLERGIES: THE PATIENT HAS NO KNOWN ALLERGIES. MEDICATIONS AT HOME: Included the Levaquin, cough medication and Tylenol. PHYSICAL EXAMINATION: GENERAL: On exam, patient is in bed, appearing much older than her stated age of 81. VITAL SIGNS: With a temperature of 98, blood pressure is 101/70, respiratory rate of 20, heart rate is up to 99. Examination of the oxygenation, patient is oxygenating 96%. HEENT: Unremarkable. NECK: Supple. LUNGS: Decreased breath sounds. HEART: Normal S1, S2. ABDOMEN: Soft, nontender. LABORATORY DATA: Reveals a white count of 9.6, hemoglobin of 9.1, white blood cells 276, 84% granulocytosis. Chemistry reveals a BUN of 17, creatinine of 0.6 and BNP is 1190. Glucose is 154. Influenza is negative. Patient had a chest x-ray which was reported to be negative. The patient's EKG reveals a QTC of 459. In the emergency room, the patient was seen by Dr. Smith. The emergency documentation is reviewed. The reading of the chest x-ray was right lower lobe pneumonia, failed as outpatient, on Levaquin. ASSESSMENT AND PLAN: An 81-year-old female with dementia Alzheimer's, seizures. The patient was treated for pneumonia as outpatient with Levaquin without improvement. The patient had an echo in 2014 with normal ejection fraction. 1. Healthcare-associated pneumonia. We will treat the patient with Maxipime and doxycycline. Urinalysis had been requested twice. The patient is incontinent of urine. The patient's daughter refuses straight cath. We will check on the blood cultures, urine cultures, sputum culture and urine culture has not been collected also. We will check on the procalcitonin and will make further recommendations upon availability of initial cultures and clinical response. We will follow with you. oJny Benítez MD
--- NOTE | 2017-07-08 03:13 | CON ---
DATE: HISTORY OF PRESENT ILLNESS: This is an 81-year-old female with past medical history of dementia, seizure. Recently, she was in the hospital for pneumonia and aggressive therapy was done. The patient was given Levaquin, came back to hospital, daughter is at bedside. The patient is nonverbal and history from the daughter. PHYSICAL EXAMINATION: On examination, the patient is awake, not following commands and possibly aphasic. Cranial nerves II through XII are tested. Pupil reactive. EOM intact. Spontaneous movement of the extremities noted. Deep tendon reflexes 1+. Both plantars are downgoing. Sensory appears intact. Cerebellar, gait deferred. IMPRESSION: Encephalopathy, superimposed on dementia and seizure. PLAN: Workup in progress. Continue present management. The patient's daughter refused to do the CAT scan. Ronald Galicia MD
[2017-07-08] MEDS: Albuterol-Ipratrop 3 mg / 0.5 (3 ml) UD IH SCH ×4 (03:15→19:01)
[2017-07-08] MEDS: Cefepime 1gm in NS 100ml 1 GM/100 ML BAG IVPB SCH ×3 (05:01→21:49)
[2017-07-08 07:52] LABS: MEAN CELL VOLUME 86.7 fl (80.0-105.0); MEAN CORPUSCULAR HGB CONC 32.3 g/dl (31.0-37.0); MEAN PLATELET VOLUME 8.4 fl (7.0-11.0); RBC 2.71 10^6/uL (3.5-6.1); RED CELL DISTRIBUTION WIDTH 15.5 % (11.5-14.5); WHITE BLOOD COUNT 5.5 10^3/ul (4.5-11.0)
[2017-07-08 07:55] LABS: HEMOGLOBIN 7.6 g/dL (12.0-16.0)
[2017-07-08 08:01] LABS: ALB/GLOB RATIO 0.8 (1.1-1.8); ALBUMIN 2.6 g/dL (3.0-4.8); ALT/SGPT 33 U/L (7-56); AST/SGOT 41 U/L (14-36); BLOOD UREA NITROGEN 17 mg/dL (7-21); CALCIUM 8.4 mg/dL (8.4-10.5); GFR AFRICAN-AMERICAN > 60; GFR NON-AFRICAN AMERICAN > 60
--- NOTE | 2017-07-08 08:15 | HP ---
HISTORY OF PRESENT ILLNESS: I know her from taking care of her on the outpatient. She was just on medication, Levaquin, for a bad bronchitis and the outpatient pneumonia, trying to keep her out of the hospital, family took her to the emergency room yesterday with coughing and congestion and shortness of breath after feeding her. They felt that she could not swallow well and unable to swallow, she was choking and had a fever, and she was being seen in the outpatient for pneumonia as a history of being dementia, seizures, pneumonia. She finished the 5-day course of Levaquin and a moment of doing well and then coughing, congestion and she is not awake, unresponsive. FAMILY HISTORY: There is hypertension in the family. SOCIAL HISTORY: She never smoked. No alcohol. No drugs. ALLERGIES: NO KNOWN DRUG ALLERGIES. MEDICATIONS: She is on Levaquin 750 daily if we track down her medication list. She is unresponsive, cannot get much of a history, family is present. She has dementia. She used to talk a little bit and swallow, now she is out of it with swallow eval pending. She is unresponsive right now, but she was coughing with sputum with congestion and shortness of breath. She has had no chest pain. No abdominal pain, so the skin is okay. PHYSICAL EXAMINATION: VITAL SIGNS: She has a 97.8 temperature, 97 pulse, 18 respiratory rate, 136/92 blood pressure, 96% O2 sat on 2 liters nasal cannula, they told me it dropped to 90 when she was off the oxygen. HEENT: Head is atraumatic, normocephalic, on oxygen, not arousable. Throat is dry. NECK: Supple. HEART: Regular rate. LUNGS: Decreased breath sounds bilaterally. There are some wheezes, poor inspiration. ABDOMEN: Soft, nontender. Positive bowel sounds. No apparent guarding or rebound. EXTREMITIES: No edema. NEUROLOGIC: She is unconscious, she is not waking up. She is not alert at all. SKIN: Warm and dry. No apparent rashes or ulcers. Thyroid midline. No palpable appreciable lymphadenopathy. Family is present. She is currently on doxycycline, cefepime and IV fluids. She has a 9.1 white count, 9.6 hemoglobin, 29.5 hematocrit with 276 platelets. 139 sodium, potassium 3.9, BUN 17, creatinine 0.6, , sugar is 154, calcium is 8.9, magnesium 1.7. Total bili is 0.3, AST is 43, ALT is 42, alk phos 99, BNP is 1190, total protein 6.8. She is negative for the flu. I was told by the ER doctor she had a pneumonia on x-ray and the x-ray report came back today as no active disease. She is unresponsive, questionable pneumonia, failure to thrive, anemia. I called Neurology, I called in Infectious Disease and Pulmonary. She might need to have a feeding tube, hospice if she cannot pass a swallow evaluation and did not wake up. We will discuss that in the next 24 to 48 hours with the family. Presently, she is unresponsive on IV antibiotics. Thanh Lassiter DO MTDD
--- NOTE | 2017-07-08 10:27 | PN ---
DATE: 07/08/2017 PULMONARY NOTE SUBJECTIVE: The patient appears very comfortable this morning. She is not short of breath at rest. PHYSICAL EXAMINATION VITAL SIGNS: Temperature is 98.6, pulse is 78, respirations 18, blood pressure 101/43. Oxygen saturation on room air is 94%. HEENT: Normocephalic, atraumatic. No JVD. CARDIOVASCULAR: Systolic ejection murmur at the lower left sternal border. No S3 gallop. LUNGS: Decreased breath sounds at the bases. Minimal rhonchi. No wheezing. EXTREMITIES: Mild edema. No cyanosis, no clubbing. Calves are nontender to palpation. GI: Abdomen is soft, nontender and nondistended. Bowel sounds are positive. SKIN: No acute rash. NEUROLOGIC: Limited at the present time. IMPRESSION: 1. Mild acute bronchitis. 2. Mild bronchospasm. 3. Elevated B-type natriuretic peptide. 4. Mild anemia. PLAN: The patient appears comfortable this morning. She is not short of breath at rest. The daughter is at bedside. I did discuss the case with the daughter at length. The daughter states that the patient is doing much better. On physical exam, there is only minimal bronchospasm noted. In addition, the oxygen saturation on room air is now 94%. I will continue the current nebulizer treatments for now. I will also order aspiration precautions. I did review the laboratory data done yesterday. A negative procalcitonin is noted. The patient is on several antibiotics - as per Infectious Disease. Hopefully, we can taper the antibiotics at this point in time. A repeat chest x-ray has been ordered for today. I will check that when feasible. Clinical status of the patient appears significantly improved. I will discuss the above with Dr. Lassiter. Jason Rehman MD [employer]
--- NOTE | 2017-07-08 10:49 | RAD ---
HISTORY: pneumonia COMPARISON: 07/06/2017 TECHNIQUE: Chest PA and lateral FINDINGS: LUNGS: There is a focal infiltrate at the medial right lung base. This is seen posteriorly on the lateral film. PLEURA: No significant pleural effusion identified. No pneumothorax apparent. CARDIOVASCULAR: Normal. OSSEOUS STRUCTURES: No significant abnormalities. VISUALIZED UPPER ABDOMEN: Normal. OTHER FINDINGS: None. IMPRESSION: There is a focal infiltrate at the medial right lung base. This is seen posteriorly on the lateral film.
--- NOTE | 2017-07-08 12:16 | CP.PCM.PN ---
Subjective - Date & Time of Evaluation Date of Evaluation: 07/08/17 Time of Evaluation: 10:30 - Subjective Subjective: Comfortable in bed, looking better as per family, no fevers overnight. Objective - Vital Signs/Intake and Output Vital Signs (last 24 hours): Temp Pulse Resp BP Pulse Ox 98.6 F 80 18 101/43 L 94 L 07/08/17 05:56 07/08/17 05:56 07/08/17 05:56 07/08/17 05:56 07/08/17 05:56 Intake and Output: 07/08/17 07/08/17 06:59 18:59 Intake Total 300 Output Total 1 Balance 299 - Medications Medications: Current Medications Albuterol/Ipratropium (Duoneb 3 Mg/0.5 Mg (3 Ml) Ud) 3 ml IH [id number] JENNIFER Last Admin: 07/08/17 08:36 Dose: 3 ml Doxycycline Hyclate 100 mg/ (Sodium Chloride) 100 mls @ 100 mls/hr IVPB Q12 JENNIFER PRN Reason: Protocol Stop: 07/16/17 10:01 Last Admin: 07/08/17 12:09 Dose: 100 mls/hr Cefepime HCl (Maxipime 1gm) 1 gm in 100 mls @ 100 mls/hr IVPB Q8 JENNIFER PRN Reason: Protocol Stop: 07/15/17 14:01 Last Admin: 07/08/17 05:01 Dose: 100 mls/hr - Labs Labs: 07/08/17 06:50 07/08/17 06:50 - Constitutional Appears: Chronically Ill - Head Exam Head Exam: NORMAL INSPECTION - Neck Exam Neck Exam: absent: Meningismus - Respiratory Exam Respiratory Exam: Decreased Breath Sounds - Cardiovascular Exam Cardiovascular Exam: +S1, +S2 - GI/Abdominal Exam GI & Abdominal Exam: Soft. absent: Tenderness Assessment and Plan - Assessment and Plan (Free Text) Plan: Assessment consider HCAP, R/O UTI Alzheimer's dementia seizure disorder recent pneumonia Plan Continue Doxycycline and Merrem day 2; blood cx are negative x 1 day, follow up urine cx will monitor clinically
--- NOTE | 2017-07-08 12:52 | PN ---
DATE: SUBJECTIVE: I saw her this morning with her family. She is wide awake. She is eating a little bit. She is much better; when she came in, completely unresponsive with a questionable pneumonia, but now the off this morning; so, she needs to get transfused. She is alert, better, almost back to her baseline. PHYSICAL EXAMINATION: VITAL SIGNS: She has a 98.6 temperature, 78 pulse, 101/43 blood pressure, 18 respiratory rate, 94% O2 saturation on room air. HEENT: Her head is atraumatic and normocephalic. She is alert. She is looking at me. She is swallowing per the daughter, it is the best I have seen her. She is not unresponsive. HEART: Regular rate. LUNGS: Decreased breath sounds. ABDOMEN: Soft. EXTREMITIES: Contracted. LABORATORY DATA: She has a white count of 5.5, hemoglobin dropped 2 units down to 7.6 and 22.5 hematocrit. There are 262,000 platelets and transfused a 2 units of packed red blood cells today. Sodium is 145; potassium 3.5, I gave her a K-rider. BUN 17, creatinine 0.6. GFR is greater than 60, sugar is 88, calcium is 8.4, total bilirubin is 0.2. AST is 41, ALT is 33, alkaline phosphatase 64, total protein is 5.8. Although, there is no growth on cultures, she came in unresponsive with a questionable pneumonia, she is more alert, that is better, but the hemoglobin dropped and transfused a 2 units of packed red blood cells and if she does well, the plan will be to get her out after the transfusion. She is more alert, but now quite anemic. We will check on stools for blood and place her on Sin Lassiter DO [email or web address]
--- NOTE | 2017-07-08 15:33 | CP.PCM.PN ---
<LaraJuly - Last Filed: 07/08/17 15:22> Subjective - Date & Time of Evaluation Date of Evaluation: 07/08/17 Time of Evaluation: 09:00 - Subjective Subjective: Neurology PGY-2 for [place] Daughter by bedside. Pt is non-verbal, open eyes spontanouesly. Objective - Vital Signs/Intake and Output Vital Signs (last 24 hours): Temp Pulse Resp BP Pulse Ox 99.1 F 90 16 129/70 94 L 07/08/17 12:00 07/08/17 12:00 07/08/17 12:00 07/08/17 12:00 07/08/17 05:56 Intake and Output: 07/08/17 07/08/17 06:59 18:59 Intake Total 300 Output Total 1 Balance 299 - Medications Medications: Current Medications Albuterol/Ipratropium (Duoneb 3 Mg/0.5 Mg (3 Ml) Ud) 3 ml IH [id number] JENNIFER Last Admin: 07/08/17 14:25 Dose: 3 ml Doxycycline Hyclate 100 mg/ (Sodium Chloride) 100 mls @ 100 mls/hr IVPB Q12 JENNIFER PRN Reason: Protocol Stop: 07/16/17 10:01 Last Admin: 07/08/17 12:09 Dose: 100 mls/hr Cefepime HCl (Maxipime 1gm) 1 gm in 100 mls @ 100 mls/hr IVPB Q8 JENNIFER PRN Reason: Protocol Stop: 07/15/17 14:01 Last Admin: 07/08/17 05:01 Dose: 100 mls/hr - Labs Labs: 07/08/17 06:50 07/08/17 06:50 - Constitutional Appears: No Acute Distress - Eye Exam Eye Exam: EOMI, Normal appearance, PERRL. absent: Scleral icterus Pupil Exam: NORMAL ACCOMODATION - ENT Exam ENT Exam: Mucous Membranes Moist - Respiratory Exam Respiratory Exam: Clear to Ausculation Bilateral, NORMAL BREATHING PATTERN - Cardiovascular Exam Cardiovascular Exam: REGULAR RHYTHM, +S1, +S2, Murmur - GI/Abdominal Exam GI & Abdominal Exam: Soft, Normal Bowel Sounds. absent: Tenderness - Neurological Exam Neurological Exam: Awake Additional comments: Pt is awake, not following command speech: possibly aphasic motor: all 4 extremities contracted, spontanous movement of all extremities noted DTR: 1+ Sensory: appears intact Babinski: downfoing Assessment and Plan - Assessment and Plan (Free Text) Plan: Ms Dorie Muñiz, 81F, with hx alzheimer disease requiring helps on ADLs, came to the hospital for unresponsive and admitted for pneumonia failed outpatient management and failure to thrive. Her BP was 98/70, occassional bradycardic in 40s. Pt mentation improves today. Pt is awake, opens eye spontanously, basline aphasic per family. Family refuses CT head. Encephalopathy, likely from metabolic derangement from transient cerebral hypoperfusion due to transient hypotension, acute on chronic anemia, possible HCAP, superimposed on dementia and seizure - Monitor electrolytes and H/H closely - Maintain SBP 120-130 - will receive 2u pRBC per primary for Hb dropped 2 points to 7.6 and Hct of 22.5 - continue medical management per ID, pulm, and primary teams - May consider restarting donepazil per primary team and family decision. Daughter said that mom was not on donepazil. - continue PT/OT s/r/d/w Dr. Galicia <Caleb Galicia - Last Filed: 07/09/17 10:28> Objective - Vital Signs/Intake and Output Vital Signs (last 24 hours): Temp Pulse Resp BP Pulse Ox 98.8 F 76 19 106/55 L 95 07/09/17 06:00 07/09/17 06:00 07/09/17 06:00 07/09/17 06:00 07/09/17 06:00 Intake and Output: 07/09/17 07/09/17 06:59 18:59 Intake Total 995 Output Total 0 Balance 995 - Medications Medications: Current Medications Albuterol/Ipratropium (Duoneb 3 Mg/0.5 Mg (3 Ml) Ud) 3 ml IH [id number] JENNIFER Last Admin: 07/09/17 07:55 Dose: 3 ml Doxycycline Hyclate 100 mg/ (Sodium Chloride) 100 mls @ 100 mls/hr IVPB Q12 JENNIFER PRN Reason: Protocol Stop: 07/16/17 10:01 Last Admin: 07/09/17 10:06 Dose: 100 mls/hr Cefepime HCl (Maxipime 1gm) 1 gm in 100 mls @ 100 mls/hr IVPB Q8 JENNIFER PRN Reason: Protocol Stop: 07/15/17 14:01 Last Admin: 07/09/17 05:26 Dose: 100 mls/hr - Labs Labs: 07/09/17 05:15 07/09/17 05:15 Attending/Attestation - Attestation I have personally seen and examined this patient.: Yes I have fully participated in the care of the patient.: Yes I have reviewed all pertinent clinical information, including history, physical exam and plan: Yes
--- NOTE | 2017-07-09 00:44 | CP.PCM.PN ---
Subjective - Date & Time of Evaluation Date of Evaluation: 07/09/17 Time of Evaluation: 00:42 - Subjective Subjective: S:Nurse calls and tells that Temperature is 99.7*F. Patient is receiving blood transfusion. Requests an order for tylenol. Patient has no complaints. Medical record was reviewed. O: Last Vital Signs 3 Temp 98.5 F 07/09/17 04:50 Pulse 73 07/09/17 05:05 Resp 20 07/09/17 04:50 BP 112/69 07/09/17 04:50 Pulse Ox 97 07/09/17 00:30 Stable. Not in distress. LUNGS:Normal breathing pattern. A: Low grade temperature. Receiving blood transfusion. P:Tylenol suppository as ordered. Objective - Vital Signs/Intake and Output Vital Signs (last 24 hours): Temp Pulse Resp BP Pulse Ox 99.7 F H 94 H 18 157/87 H 94 L 07/08/17 21:47 07/08/17 21:47 07/08/17 21:47 07/08/17 21:49 07/08/17 05:56 Intake and Output: 07/08/17 07/09/17 18:59 06:59 Intake Total 380 340 Balance 380 340 - Medications Medications: Current Medications Albuterol/Ipratropium (Duoneb 3 Mg/0.5 Mg (3 Ml) Ud) 3 ml IH [id number] JENNIFER Last Admin: 07/08/17 19:01 Dose: 3 ml Doxycycline Hyclate 100 mg/ (Sodium Chloride) 100 mls @ 100 mls/hr IVPB Q12 JENNIFER PRN Reason: Protocol Stop: 07/16/17 10:01 Last Admin: 07/08/17 22:55 Dose: 100 mls/hr Cefepime HCl (Maxipime 1gm) 1 gm in 100 mls @ 100 mls/hr IVPB Q8 JENNIFER PRN Reason: Protocol Stop: 07/15/17 14:01 Last Admin: 07/08/17 21:49 Dose: 100 mls/hr - Labs Labs: 07/08/17 06:50 07/08/17 06:50
[2017-07-09] MEDS: Albuterol-Ipratrop 3 mg / 0.5 (3 ml) UD IH SCH ×3 (01:23→14:18)
[2017-07-09] MEDS: Cefepime 1gm in NS 100ml 1 GM/100 ML BAG IVPB SCH (05:26)
[2017-07-09 06:10] VITALS: RESP 19; O2SAT 95
[2017-07-09 06:25] LABS: HEMOGLOBIN 11.9 g/dL (12.0-16.0); MEAN CELL VOLUME 85.7 fl (80.0-105.0); MEAN CORPUSCULAR HEMOGLOBIN 28.4 pg (25.0-35.0); MEAN CORPUSCULAR HGB CONC 33.1 g/dl (31.0-37.0); MEAN PLATELET VOLUME 8.3 fl (7.0-11.0); RBC 4.19 10^6/uL (3.5-6.1); RED CELL DISTRIBUTION WIDTH 14.8 % (11.5-14.5); WHITE BLOOD COUNT 5.6 10^3/ul (4.5-11.0)
[2017-07-09 06:48] LABS: ALB/GLOB RATIO 0.9 (1.1-1.8); ALBUMIN 3.2 g/dL (3.0-4.8); ALT/SGPT 39 U/L (7-56); AST/SGOT 49 U/L (14-36); BLOOD UREA NITROGEN 20 mg/dL (7-21); CALCIUM 8.9 mg/dL (8.4-10.5); GFR AFRICAN-AMERICAN > 60; GFR NON-AFRICAN AMERICAN > 60
--- NOTE | 2017-07-09 08:06 | PN ---
DATE: 07/09/2017 PULMONARY NOTE SUBJECTIVE: The patient appears comfortable this morning. She is not short of breath at rest. The daughter is at bedside. PHYSICAL EXAMINATION VITAL SIGNS: Temperature is 98.8, pulse is 76, respirations 19, blood pressure 106/55. Oxygen saturation on room air is 95%-97%. HEENT: Normocephalic, atraumatic. No JVD. CARDIOVASCULAR: Systolic ejection murmur at the lower left sternal border. No S3 gallop. LUNGS: Decreased breath sounds at the bases. No rhonchi or wheezing this morning. EXTREMITIES: Mild edema. No cyanosis, no clubbing. Calves are nontender to palpation. GI: Abdomen is soft, nontender and nondistended. Bowel sounds are positive. SKIN: No acute rash. NEUROLOGIC: Limited at the present time. PERTINENT LABORATORY DATA: Chest x-ray was repeated yesterday and reviewed. There is a small patchy infiltrate noted at the right lung base. IMPRESSION: 1. Mild acute bronchitis. 2. Mild bronchospasm. 3. Rule out pneumonia - right base. 4. Elevated B-type natriuretic peptide. 5. Mild anemia. PLAN: The patient appears very comfortable this morning. She is not short of breath at rest. The daughter is at bedside, and I did discuss the case with her at length. The daughter stated that her mother (the patient) is not coughing anymore. On physical exam, her bronchospasm has primarily resolved. In addition, the oxygen saturation on room air is now 95%-97%. I will continue the current nebulizer treatments for now. As noted yesterday, the procalcitonin done was negative. However, I would continue with the antibiotic coverage as per Infectious Disease for now. Temperatures have resolved. There is no leukocytosis. I will also continue with the aspiration precautions. Clinical status of the patient is certainly improved - compared to the initial presentation. However, the future status/prognosis for this chronically ill elderly patient does remain guarded. I will discuss the above with Dr. Lassiter. Jason Rehman MD [employer]
--- NOTE | 2017-07-09 11:34 | CP.PCM.PN ---
Subjective - Date & Time of Evaluation Date of Evaluation: 07/09/17 Time of Evaluation: 10:20 - Subjective Subjective: Comfortable, no outright fever but had low grade temperatures, patient is feeling better, no SOB at rest. Objective - Vital Signs/Intake and Output Vital Signs (last 24 hours): Temp Pulse Resp BP Pulse Ox 98.8 F 76 19 106/55 L 95 07/09/17 06:00 07/09/17 06:00 07/09/17 06:00 07/09/17 06:00 07/09/17 06:00 Intake and Output: 07/08/17 07/09/17 18:59 06:59 Intake Total 380 995 Output Total 0 Balance 380 995 - Medications Medications: Current Medications Albuterol/Ipratropium (Duoneb 3 Mg/0.5 Mg (3 Ml) Ud) 3 ml IH [id number] JENNIFER Last Admin: 07/09/17 01:23 Dose: 3 ml Doxycycline Hyclate 100 mg/ (Sodium Chloride) 100 mls @ 100 mls/hr IVPB Q12 JENNIFER PRN Reason: Protocol Stop: 07/16/17 10:01 Last Admin: 07/08/17 22:55 Dose: 100 mls/hr Cefepime HCl (Maxipime 1gm) 1 gm in 100 mls @ 100 mls/hr IVPB Q8 JENNIFER PRN Reason: Protocol Stop: 07/15/17 14:01 Last Admin: 07/09/17 05:26 Dose: 100 mls/hr - Labs Labs: 07/09/17 05:15 07/08/17 06:50 - Constitutional Appears: Non-toxic, Chronically Ill - Head Exam Head Exam: NORMAL INSPECTION - Respiratory Exam Respiratory Exam: Decreased Breath Sounds - Cardiovascular Exam Cardiovascular Exam: +S1, +S2 - GI/Abdominal Exam GI & Abdominal Exam: Soft. absent: Tenderness Assessment and Plan - Assessment and Plan (Free Text) Plan: Assessment consider HCAP right sided, with acute bronchitis Alzheimer's dementia seizure disorder recent pneumonia Plan on Doxycycline and cefepime day 3; blood cx are negative - when ready for discharge, the patient can be switched to PO antibiotics to complete the 7 day course discussed with Dr. Lassiter
[2017-07-09 12:41] VITALS: BP 119/75; PULSE 84; TEMP 99.1
--- NOTE | 2017-07-10 05:22 | DS ---
SUMMARY: She is resting comfortably in bed. Her eyes are open. Family is with her. She is on doxycycline, DuoNebs, and Maxipime. PHYSICAL EXAMINATION: VITAL SIGNS: Temperature 98.8, 76 pulse, 106/55 blood pressure, 19 respiratory rate, 95% O2 sat on room air. HEENT: Head is atraumatic, normocephalic. HEART: Regular rate. LUNGS: Decreased breath sounds, but clear. ABDOMEN: Soft. EXTREMITIES: Were contracted, but no edema. LABORATORY DATA: She has a negative flu. White count 5.6, 11.9 hemoglobin, 35.9 hematocrit, 293 platelets. She has chemistry of 144 sodium, potassium 4.1, BUN 20, creatinine 0.7, GFR is greater than 60, sugar is 94, calcium is 8.9, total bili is 0.5. AST is 49, ALT is 39, alkaline phosphatase is 80. BNP is 2840 high, and 7 total protein. No growth in blood. MRSA not detected, no growth. PLAN: My plan is to discharge her home. She is doing much better on Ceftin 500 twice a day for 8 days. Continue treatment and care at home. Keep her stimulator if possible. She is bedridden and will call me for help. DIAGNOSES: Bronchitis, pneumonia, anemia - she was transfused, failure to thrive. Thanh Lassiter DO
== END 2017-07-09 15:09 | disposition home health service (06) | DRG 193 ==
LOC: ED 16:48 → ERH 20:06 → 2RSO 21:41
PROVIDERS: ADMIT Family Medicine; ATTEND Family Medicine
PROC: 30233N1 Transfusion of Nonautologous Red Blood Cells into Peripheral Vein, Percutaneous Approach (ICD-10-PCS; principal; 2017-07-08)
DX: J18.0 Bronchopneumonia, unspecified organism (principal); G93.41 Metabolic encephalopathy; D64.9 Anemia, unspecified; G30.9 Alzheimer's disease, unspecified; F02.80 Dementia in other diseases classified elsewhere, unspecified severity, without behavioral disturbance, psychotic disturbance, mood disturbance, and anxiety; J20.9 Acute bronchitis, unspecified; R62.7 Adult failure to thrive; R09.02 Hypoxemia; G40.909 Epilepsy, unspecified, not intractable, without status epilepticus

== ENCOUNTER 2017-07-23 19:02 | Emergency (ER) | payer MEDICARE, MEDICAID ==
[2017-07-23 19:04] VITALS: BMI 22.2
--- NOTE | 2017-07-23 19:31 | ED PDOC ---
Arrival/HPI - General Chief Complaint: Respiratory Distress Time Seen by Provider: 07/23/17 19:27 Historian: Family (daughter/son), EMS - History of Present Illness Narrative History of Present Illness (Text): 07/23/17 19:29 pt with dementia, non-verbal, under the care of family members (daughter/son); while having dinner tonight, just prior to ED arrival, pt choked on her dinner ( rice and beans soup); family was directed by EMS to perform hemilich manuver, the son provided abdominal thrust ~ 10-20 times, NO vomiting, no spitting was noted; NO cyanosis at the lips noted, + acute sob but resolved quickly once the choking episode subsides; pt did not have any other medical complaints; no fever /sweats, no pain, no vomiting, continued sob, no urinary/bowel changes, no loc, no other complaints; pt is here for further eval. PCP: Dr Roach Time/Duration: Prior to Arrival Symptom Onset: Sudden Symptom Course: Improving Activities at Onset: Rest Context: Home Past Medical History - Provider Review Nursing Documentation Reviewed: Yes - Travel History Have you recently traveled outside [place] w/in the past 3 mons?: No - Past History Past History: No Previous - Infectious Disease Hx of Infectious Diseases: None - Cardiac Hx Cardiac Disorders: No - Pulmonary Hx Pneumonia: Yes - Neurological Hx Alzheimer's Disease: Yes Hx Dementia: Yes Hx Seizures: Yes (feb 2017) - HEENT Hx HEENT Disorder: No - Renal Hx Renal Disorder: No - Endocrine/Metabolic Hx Endocrine Disorders: No - Hematological/Oncological Hx Blood Disorders: No - Integumentary Hx Dermatological Disorder: No - Musculoskeletal/Rheumatological Hx Musculoskeletal Disorders: No Hx Falls: No - Gastrointestinal Hx Gastrointestinal Disorders: No - Genitourinary/Gynecological Hx Genitourinary Disorders: No - Psychiatric Hx Psychophysiologic Disorder: No Hx Substance Use: No - Anesthesia Hx Anesthesia: No Family/Social History - Physician Review Nursing Documentation Reviewed: Yes Family/Social History: No Known Family HX Smoking Status: Never Smoked Hx Alcohol Use: No Hx Substance Use: No Hx Substance Use Treatment: No Allergies/Home Meds Allergies/Adverse Reactions: Allergies No Known Allergies Allergy (Verified 07/23/17 19:13) Home Medications: Home Meds Medication Instructions Recorded Confirmed Unobtainable 07/23/17 07/23/17 Review of Systems - Review of Systems Constitutional: Normal Eyes: Normal ENT: Normal Respiratory: SOB, Cough, Other (choking) Cardiovascular: Normal Gastrointestinal: Normal Genitourinary Female: Normal Musculoskeletal: Normal Skin: Normal Neurological: Normal Endocrine: Normal Hemo/Lymphatic: Normal Psychiatric: Normal Physical Exam Vital Signs Reviewed: Yes Vital Signs Temp Pulse Resp BP Pulse Ox 07/23/17 21:04 98.7 F 90 18 142/79 95 Temperature: Afebrile Blood Pressure: Normal Pulse: Regular Respiratory Rate: Normal Appearance: Positive for: Well-Appearing, Other (comfortable, alert/awake, NAD, resting in bed) Pain Distress: None - Systems Exam Head: Present: Atraumatic, Normocephalic, Other (bi-temporal wasting noted) Pupils: Present: PERRL Extroacular Muscles: Present: EOMI Conjunctiva: Present: Normal Ears: Present: Normal Mouth: Present: Moist Mucous Membranes, Other (false teeth noted, no active drooling/stridor, no dysphonia) Pharnyx: Present: Normal Nose (External): Present: Atraumatic Nose (Internal): Present: Normal Inspection Neck: Present: Normal Range of Motion, Trachea Midline. No: MIDLINE TENDERNESS Respiratory/Chest: Present: Clear to Auscultation, Good Air Exchange, Other ( CTA b/l, no w/r/r, no accessory muscle use noted, no tachypenia). No: Wheezes, Decreased Breath Sounds Cardiovascular: Present: Regular Rate and Rhythm, Normal S1, S2. No: Murmurs Abdomen: Present: Normal Bowel Sounds, Other (soft/nd/nt, no focal tenderness, no masses/rebound/guarding/rigidity) Back: Present: Normal Inspection. No: Midline Tenderness Upper Extremity: Present: Normal Inspection, Normal ROM, NORMAL PULSES, Neurovascularly Intact, Capillary Refill < 2s Lower Extremity: Present: Normal Inspection, NORMAL PULSES, Normal ROM, Neurovascularly Intact Neurological: Present: GCS=15, CN II-XII Intact Skin: Present: Warm, Normal Color, Other (cap refill < 1sec, no ulcerations, no petechiae; pt with sacral decubitus stage 1, without surrounding skin erythema, no discharge/bleed/pus noted) Psychiatric: Present: Alert Medical Decision Making ED Course and Treatment: 07/23/17 19:30 Impression: choking i have consider all the differential diagnosis regarding pt's chief medical complaints/clinical findings, including but are not limited to: choking/ possible aspiration A/P: choking - xray - observe - supportive care 07/23/17 21:21 pt is doing well currently remains at baseline mental status family are made aware of pt's medical results encouraged pt to have smaller bites pt will f/u as directed pt will be discharged home Re-evaluation Time: 21:07 Reassessment Condition: Improved - RAD Interpretation Narrative RAD Interpretations (Text): 07/23/17 21:22 cxr: unchanged, rotated, no acute infiltrates noted soft tissue neck: DJD, no acute fxs, no metallic/dense FB/masses noted Radiology Orders: 07/23/17 19:27 NECK SOFT TISSUE [RAD] Stat 07/23/17 19:28 CHEST TWO VIEWS (PA/LAT) [RAD] Stat Edi Architect: ED Physician - EKG Interpretation EKG Interpretation (Text): 07/23/17 21:23 NSR at 85 bpm, normal axis, no ectopy, + RBBB, ineverted T in leads III, V1, no st changes, ABNL EKG; unchanged compare with old ekg 07/2017 Interpreted by ED Physician: Yes Type: 12 lead EKG Comparison: Similar to previous EKG Disposition/Present on Arrival - Present on Arrival Any Indicators Present on Arrival: No History of DVT/PE: No History of Uncontrolled Diabetes: No Urinary Catheter: No History of Decub. Ulcer: No History Surgical Site Infection Following: None - Disposition Have Diagnosis and Disposition been Completed?: Yes Diagnosis: Choking episode Disposition: HOME/ ROUTINE Disposition Time: 21:25 Patient Plan: Discharge Patient Problems: Current Active Problems Problem Status Onset Choking episode Acute Condition: STABLE Discharge Instructions (ExitCare): Choking Print Language: SYRIAC Additional Instructions: Make sure to see your doctor in 1-2 days DRINK PLENTY OF FLUIDS provide smaller volume of food when feeding patient take your medications as prescribed RETURN TO ED IF worse pain, cant breath, persistent vomiting, high fever >101- 102 for hours, altered behavior, unable to urinate, heavy/persistent bleeding, passing out, chest pain, or other medical emergencies Referrals: Aaron Roach DO [Primary Care Provider] - Follow up with primary Forms: Sun-eee (Chinese)
[2017-07-23 21:06] VITALS: RESP 18; TEMP 98.7
[2017-07-23 22:42] VITALS: BP 120/85; PULSE 89; O2SAT 100
--- NOTE | 2017-07-24 08:20 | RAD ---
HISTORY: coughing, choked on food COMPARISON: Comparison is made with 07/08/2017 TECHNIQUE: Chest PA and lateral FINDINGS: LUNGS: There is small focal opacity again noted at the right retrocardiac space likely in the right lower lobe. Otherwise no evidence of focal infiltrate or consolidation in the lungs. PLEURA: No significant pleural effusion identified. No pneumothorax apparent. CARDIOVASCULAR: Normal. OSSEOUS STRUCTURES: No significant abnormalities. VISUALIZED UPPER ABDOMEN: The stomach is distended. OTHER FINDINGS: None. IMPRESSION: Persistent small focal opacity at the right retrocardiac space may represent right lower low lesion or pneumonia. If clinically warranted further assessment by CT of the chest may be obtained.
--- NOTE | 2017-07-24 11:19 | RAD ---
PROCEDURE: Radiographs of the neck (soft tissue). HISTORY: choked on food, just prior to ED arrival COMPARISON: None. TECHNIQUE: Frontal and Lateral Radiographs of the neck, optimized for soft tissue visualization. FINDINGS: SOFT TISSUES: Unremarkable. No radiopaque foreign body seen. CERVICAL SPINE: Grossly unremarkable. OTHER FINDINGS: None. IMPRESSION: Unremarkable radiographs of the soft tissues of the neck.
--- NOTE | 2017-07-25 19:19 | CARD ---
APPROVED REPORT EKG Measurement Heart [id number] <Conclusion> Normal sinus rhythm Low voltage QRS Right bundle branch block Abnormal ECG
== END 2017-07-23 22:00 | disposition home or self-care (01) ==
LOC: ED 19:02
DX: R09.89 Other specified symptoms and signs involving the circulatory and respiratory systems (principal); F02.80 Dementia in other diseases classified elsewhere, unspecified severity, without behavioral disturbance, psychotic disturbance, mood disturbance, and anxiety; G30.9 Alzheimer's disease, unspecified

== ENCOUNTER 2018-02-01 20:40 | Emergency (ER) | payer MEDICARE, MEDICAID ==
[2018-02-01 20:41] VITALS: BMI 22.2
--- NOTE | 2018-02-01 21:13 | ED PDOC ---
Arrival/HPI - General Chief Complaint: Shortness Of Breath Time Seen by Provider: 02/01/18 20:52 Historian: Family (Son ) EM Caveat: Dementia (Makes eye contact, but does not speak) - History of Present Illness Narrative History of Present Illness (Text): 02/01/18 21:04 82 year old female, whose past medical history includes dementia non-verbal, presents to the emergency department accompanied by son s/p choking on soup 40 minutes prior to arrival. As per son, he states he was trying to feed the patient some soup and the patient began chocking. The son began trying to perform the Heimlich maneuver and called EMS. Apparently her O2 Stat was mid 80 % on room air placed on a nonrebreather and improved to 98%. As per son, patient is at baseline were she makes eye contact, but does not speak. HPI and ROS limited due to patient's baseline state of dementia. PMD: Dr Roach Time/Duration: Prior to Arrival (30 minutes) Symptom Onset: Sudden Activities at Onset: Eating Context: Home (Chocking) Past Medical History - Provider Review Nursing Documentation Reviewed: Yes - Past History Past History: No Previous - Infectious Disease Hx of Infectious Diseases: None - Cardiac Hx Cardiac Disorders: No - Pulmonary Hx Pneumonia: Yes - Neurological Hx Alzheimer's Disease: Yes Hx Dementia: Yes Hx Seizures: Yes (feb 2017) - HEENT Hx HEENT Disorder: No - Renal Hx Renal Disorder: No - Endocrine/Metabolic Hx Endocrine Disorders: No - Hematological/Oncological Hx Blood Disorders: No - Integumentary Hx Dermatological Disorder: No - Musculoskeletal/Rheumatological Hx Musculoskeletal Disorders: No Hx Falls: No - Gastrointestinal Hx Gastrointestinal Disorders: No - Genitourinary/Gynecological Hx Genitourinary Disorders: No - Psychiatric Hx Psychophysiologic Disorder: No Hx Substance Use: No - Anesthesia Hx Anesthesia: No Family/Social History - Physician Review Nursing Documentation Reviewed: Yes Family/Social History: Unknown Family HX Smoking Status: Never Smoked Hx Alcohol Use: No Hx Substance Use: No Hx Substance Use Treatment: No Allergies/Home Meds Allergies/Adverse Reactions: Allergies No Known Allergies Allergy (Verified 07/23/17 19:13) Home Medications: Home Meds Medication Instructions Recorded Confirmed Unobtainable 07/23/17 07/23/17 Review of Systems - Physician Review All systems were reviewed & negative as marked: Yes - Review of Systems Systems not reviewed;Unavailable: Dementia (Makes eye contact, but does not speak) Physical Exam Vital Signs Reviewed: Yes Vital Signs Resp Pulse Ox 02/01/18 20:41 18 100 Temperature: Afebrile Blood Pressure: Normal Pulse: Tachycardic Respiratory Rate: Normal Appearance: Positive for: Well-Appearing, Non-Toxic, Comfortable Pain Distress: None Mental Status: Positive for: other (Makes eye contact, but does not speak) - Systems Exam Head: Present: Atraumatic, Normocephalic Pupils: Present: PERRL Extroacular Muscles: Present: EOMI Conjunctiva: Present: Normal Mouth: Present: Moist Mucous Membranes Neck: Present: Normal Range of Motion Respiratory/Chest: Present: Other (Coarse breath sounds bialteral bases ). No: Respiratory Distress, Accessory Muscle Use Cardiovascular: Present: Tachycardic. No: Murmurs Abdomen: No: Tenderness, Distention, Peritoneal Signs Back: Present: Normal Inspection Upper Extremity: Present: Normal Inspection. No: Cyanosis, Edema Lower Extremity: Present: Normal Inspection. No: Edema Neurological: Present: GCS=15, CN II-XII Intact Skin: Present: Warm, Dry, Normal Color. No: Rashes Psychiatric: Present: Alert, Other (Makes eye contact, but does not speak) Medical Decision Making ED Course and Treatment: 02/01/18 21:10 Impression: 82 year old female presents for evaluation s/p choking on soup 40 minutes ago prior to arrival. Plan: -- Labs -- Chest X-ray -- Reassess and disposition Prior Visits: Notes and results from previous visits were reviewed. Progress Notes: 02/01/18 21:43 CXR Impression: As read by FRANC gallo. 02/01/18 22:12 Nonrebreather removed and O2 Stat 98% on room air. Patient is not in distress. No choking episodes, cough, or respiratory distress throughout ED course. On re-evaluation, patient is in no acute distress. I have discussed the results and plan with the patient and family, who expresses understanding. Patient and family in agreement with plan to be discharged home. Patient is stable for discharge. Patient and family was instructed to follow up with physician or return if symptoms worsen or new concerning symptoms arise. - Lab Interpretations Lab Results: 02/01/18 20:55 02/01/18 20:55 Lab Results 02/01/18 20:55: Sodium 132, Potassium 4.7, Chloride 99, Carbon Dioxide 23, Anion Gap 15, BUN 20, Creatinine 0.5 L, Est GFR ( Amer) > 60, Est GFR ( Non-Af Amer) > 60, Random Glucose 149 H, Calcium 8.5 02/01/18 20:55: WBC 5.3, RBC 3.74, Hgb 11.3 L, Hct 32.8 L, MCV 87.7, MCH 30.2, MCHC 34.5, RDW 13.9, Plt Count 224, MPV 9.6, Gran % 39.4 L, Lymph % (Auto) 43.7 H, Titus % (Auto) 5.5, Eos % (Auto) 11.0 H, Baso % (Auto) 0.4, Gran # 2.07, Lymph # (Auto) 2.3, Titus # (Auto) 0.3, Eos # (Auto) 0.6, Baso # (Auto) 0.02 I have reviewed the lab results: Yes - RAD Interpretation Radiology Orders: 02/01/18 20:52 CXR [CHEST PORTABLE] [RAD] Stat - Scribe Statement The provider has reviewed the documentation as recorded by the Scribe Tomasz Ram Provider Scribe Attestation: All medical record entries made by the Scribe were at my direction and personally dictated by me. I have reviewed the chart and agree that the record accurately reflects my personal performance of the history, physical exam, medical decision making, and the department course for this patient. I have also personally directed, reviewed, and agree with the discharge instructions and disposition. Disposition/Present on Arrival - Present on Arrival Any Indicators Present on Arrival: No History of DVT/PE: No History of Uncontrolled Diabetes: No Urinary Catheter: No History of Decub. Ulcer: No History Surgical Site Infection Following: None - Disposition Have Diagnosis and Disposition been Completed?: Yes Diagnosis: Choking, Hypoxic Disposition: HOME/ ROUTINE Disposition Time: 22:15 Patient Problems: Current Active Problems Problem Status Onset Choking Acute Hypoxic Acute Condition: FAIR Discharge Instructions (ExitCare): Choking Additional Instructions: YONI PLATA, thank you for letting us take care of you today. Your provider was Santa Silvestre MD and you were treated for SOB. The emergency medical care you received today was directed at your acute symptoms. If you were prescribed any medication, please fill it and take as directed. It may take several days for your symptoms to resolve. Return to the Emergency Department if your symptoms worsen, do not improve, or if you have any other problems. Please contact your doctor or call one of the physicians/clinics you have been referred to that are listed on the Patient Visit Information form that is included in your discharge packet. Bring any paperwork you were given at discharge with you along with any medications you are taking to your follow up visit. Our treatment cannot replace ongoing medical care by a primary care provider outside of the emergency department. Thank you for allowing the [facility] team to be part of your care today. If you had an X-Ray or CT scan: A Radiologist will review the ED reading if any change in treatment is needed we will contact you. If you had a blood, urine, or wound culture: It will take several days for the results, if any change in treatment is needed we will contact you. If you had an STI test: It will take 48 hours for the results. Please call after 1 week if you have not heard back. Forms: [employer] ([place])
[2018-02-01 21:24] LABS: CALCIUM 8.5 mg/dL (8.4-10.5); GFR NON-AFRICAN AMERICAN > 60
[2018-02-01 21:26] LABS: BASO # 0.02 K/mm3 (0.0-2.0); BASO % 0.4 % (0.0-3.0); EOS # 0.6 (0.0-0.7); GRAN # 2.07 (1.4-6.5); GRAN % 39.4 % (50.0-68.0); HEMOGLOBIN 11.3 g/dL (12.0-16.0); LYMPH # 2.3 (1.2-3.4); LYMPH % 43.7 % (22.0-35.0); MEAN CELL VOLUME 87.7 fl (80.0-105.0); MEAN CORPUSCULAR HEMOGLOBIN 30.2 pg (25.0-35.0); MEAN CORPUSCULAR HGB CONC 34.5 g/dl (31.0-37.0); MEAN PLATELET VOLUME 9.6 fl (7.0-11.0); MONO # 0.3 (0.1-0.6); MONO % 5.5 % (1.0-6.0); RBC 3.74 10^6/uL (3.5-6.1); RED CELL DISTRIBUTION WIDTH 13.9 % (11.5-14.5); WHITE BLOOD COUNT 5.3 10^3/ul (4.5-11.0)
[2018-02-01 21:29] LABS: BLOOD UREA NITROGEN 20 mg/dL (7-21)
[2018-02-01 22:40] VITALS: BP 135/84; PULSE 75; RESP 16; O2SAT 96
[2018-02-01 22:41] VITALS: TEMP 97.8
--- NOTE | 2018-02-02 09:21 | RAD ---
HISTORY: dyspnea COMPARISON: Chest x-ray performed 07/23/17 TECHNIQUE: Chest, one view. FINDINGS: Examination limited by habitus and patient obliquity. The patient's hand obscures evaluation of the right lower lobe. LUNGS: No focal consolidation. Please note that chest x-ray has limited sensitivity for the detection of pulmonary masses. PLEURA: Minimal blunting of the left hemidiaphragm may reflect tiny effusion or pleural thickening. No definite pneumothorax . CARDIOVASCULAR: Cardiomegaly. OSSEOUS STRUCTURES: Postsurgical changes of the right humeral head. Degenerative changes of the spine. VISUALIZED UPPER ABDOMEN: Unremarkable. OTHER FINDINGS: None. IMPRESSION: Limited study. Minimal blunting of the left hemidiaphragm may reflect tiny effusion or pleural thickening. Cardiomegaly.
--- NOTE | 2018-02-03 05:34 | CARD ---
APPROVED REPORT Date of service: 02/01/2018 EKG Measurement Heart [id number] <Conclusion> Normal sinus rhythm Low voltage QRS Right bundle branch block Abnormal ECG
== END 2018-02-01 22:35 | disposition home or self-care (01) ==
LOC: ED 20:40
DX: R09.89 Other specified symptoms and signs involving the circulatory and respiratory systems (principal)

== ENCOUNTER 2018-03-05 11:38 | Inpatient (IN) | payer MEDICARE, MEDICAID ==
[2018-03-05 11:43] VITALS: BMI 20.1
[2018-03-05] MEDS ORDERED: Albuterol-Ipratrop 3 mg / 0.5 (3 ml) UD IH STA (12:07)
--- NOTE | 2018-03-05 12:12 | ED PDOC ---
Arrival/HPI - General Chief Complaint: Respiratory Distress Time Seen by Provider: 03/05/18 11:53 Historian: Family - History of Present Illness Narrative History of Present Illness (Text): 03/05/18 12:08 A 82 year old female, whose past medical history includes dementia non-verbal, is brought in by EMS and accompanied by family member, presents to the emergency department for shortness of breath and coughing. Per family, patient was at home, unable to keep food down and making choking sensation. At some point, she was back to normal, and then shortly afterwards she began aspirating/choking. Limited HPI and ROS due to patient's dementia at this time. PMD: Located in [place] according to family member. Time/Duration: 24 hours Symptom Onset: Gradual Symptom Course: Unchanged Quality: Unable to Describe Severity Level: Moderate Activities at Onset: Eating Context: Home Past Medical History - Provider Review Nursing Documentation Reviewed: Yes - Travel History Have you recently traveled outside [place] w/in the past 3 mons?: No - Past History Past History: No Previous - Infectious Disease Hx of Infectious Diseases: None - Cardiac Hx Cardiac Disorders: No - Pulmonary Hx Pneumonia: Yes - Neurological Hx Alzheimer's Disease: Yes Hx Dementia: Yes Hx Seizures: Yes (feb 2017) - HEENT Hx HEENT Disorder: No - Renal Hx Renal Disorder: No - Endocrine/Metabolic Hx Endocrine Disorders: No - Hematological/Oncological Hx Blood Disorders: No - Integumentary Hx Dermatological Disorder: No - Musculoskeletal/Rheumatological Hx Musculoskeletal Disorders: No Hx Falls: No - Gastrointestinal Hx Gastrointestinal Disorders: No - Genitourinary/Gynecological Hx Genitourinary Disorders: No - Psychiatric Hx Psychophysiologic Disorder: No Hx Substance Use: No - Anesthesia Hx Anesthesia: No Family/Social History - Physician Review Nursing Documentation Reviewed: Yes Family/Social History: No Known Family HX Smoking Status: Never Smoked Hx Alcohol Use: No Hx Substance Use: No Hx Substance Use Treatment: No Allergies/Home Meds Allergies/Adverse Reactions: Allergies No Known Allergies Allergy (Verified 07/23/17 19:13) Review of Systems - Review of Systems Systems not reviewed;Unavailable: Dementia (unable to access due to patient's dementia.) Respiratory: SOB, Cough Physical Exam Vital Signs Reviewed: Yes Vital Signs Temp Pulse Resp BP Pulse Ox 03/05/18 11:52 97.6 F 122 H 38 H 162/95 H 100 Temperature: Afebrile Blood Pressure: Hypertensive Pulse: Regular Respiratory Rate: Normal Appearance: Positive for: Cachectic Pain Distress: Moderate Mental Status: No: Alert and Oriented X 3 (alert, dementia) - Systems Exam Head: Present: Atraumatic, Normocephalic Pupils: Present: PERRL Extroacular Muscles: Present: EOMI Conjunctiva: Present: Normal Respiratory/Chest: Present: Rhonchi (bilaterally). No: Wheezes, Other (no crackles.) Cardiovascular: Present: Regular Rate and Rhythm, Normal S1, S2. No: Murmurs Abdomen: Present: Other (param to the left-side). No: Tenderness, Distention, Peritoneal Signs Back: Present: Normal Inspection Upper Extremity: Present: Normal Inspection. No: Cyanosis, Edema, Other (no ecchymosis) Lower Extremity: Present: Normal Inspection. No: Edema, Other (no ecchymosis) Neurological: Present: GCS=15, CN II-XII Intact, Speech Normal Skin: Present: Warm, Dry, Normal Color. No: Rashes Psychiatric: Present: Alert, Oriented x 3, Normal Insight, Normal Concentration Medical Decision Making ED Course and Treatment: 03/05/18 12:12 Impression: 82 year old female with shortness of breath and coughing (Limited HPI and ROS due to patient's dementia). Physical exam shows patient appears cachectic; is non-responsive verbally; not tachycardic; contracted to th left- side; rhonchi bilaterally, no crackles, no wheezing; no ecchymosis present. Plan: -- Chest CT -- Chest X-ray -- Labs -- Duoneb -- Blood Culture -- Venous Blood Gas -- Reassess and disposition Prior Visits: Notes and results from previous visits were reviewed. Patient was last seen in the emergency department on 02/01/2018 for choking on soup. Patient was discharged home. Progress Notes: 03/05/18 14:46 Labs reviewed with VBG consistent with hypercapnia. CXR shows no infiltrate. CT chest reveals LLL infiltrate consistent with PNA. Updated patient and family on admission. Spoke to Dr. Lassiter(PCP) who will come see the patient. He accepts patient onto his service for admission. - Lab Interpretations I have reviewed the lab results: Yes - RAD Interpretation Narrative RAD Interpretations (Text): 03/05/2018 13:[address] FINDINGS: LUNGS: There is dense consolidation in the left lower lobe consistent with pneumonia. There is minimal atelectasis at the right lung base. The upper lung stephenson are clear. MEDIASTINUM: Unremarkable thoracic aorta. No aneurysm. Normal sized heart. Main pulmonary artery unremarkable. No vascular congestion. No lymphadenopathy. PLEURA: No pleural fluid. No pneumothorax. BONES: No fracture. No destructive lesion. UPPER ABDOMEN: Grossly unremarkable. OTHER FINDINGS: None. IMPRESSION: There is dense consolidation in the left lower lobe consistent with pneumonia. There is minimal atelectasis at the right lung base. The upper lung stephenson are clear. Dictator: Stanton Shetty MD 03/05/2018 14:14 Chest X-ray IMPRESSION: No active disease. No significant interval change compared to the prior examination(s). Dictator: Thanh Victor MD - Scribe Statement The provider has reviewed the documentation as recorded by the Scribe Wale Bennett Provider Scribe Attestation: All medical record entries made by the Scribe were at my direction and personally dictated by me. I have reviewed the chart and agree that the record accurately reflects my personal performance of the history, physical exam, medical decision making, and the department course for this patient. I have also personally directed, reviewed, and agree with the discharge instructions and disposition. Disposition/Present on Arrival - Present on Arrival Any Indicators Present on Arrival: No History of DVT/PE: No History of Uncontrolled Diabetes: No Urinary Catheter: No History of Decub. Ulcer: No History Surgical Site Infection Following: None - Disposition Have Diagnosis and Disposition been Completed?: Yes Diagnosis: PNA (pneumonia) Disposition: HOSPITALIZED Disposition Time: 13:10 Patient Plan: Admission Condition: FAIR
[2018-03-05 12:52] LABS: BASO # 0.02 K/mm3 (0.0-2.0); BASO % 0.3 % (0.0-3.0); EOS # 0.4 (0.0-0.7); EOS % 6.4 % (1.5-5.0); GRAN # 3.99 (1.4-6.5); GRAN % 69.2 % (50.0-68.0); HEMOGLOBIN 11.4 g/dL (12.0-16.0); LYMPH # 1.1 (1.2-3.4); LYMPH % 19.4 % (22.0-35.0); MEAN CELL VOLUME 90.6 fl (80.0-105.0); MEAN CORPUSCULAR HEMOGLOBIN 30.5 pg (25.0-35.0); MEAN CORPUSCULAR HGB CONC 33.6 g/dl (31.0-37.0); MEAN PLATELET VOLUME 9.8 fl (7.0-11.0); MONO # 0.3 (0.1-0.6); MONO % 4.7 % (1.0-6.0); RBC 3.74 10^6/uL (3.5-6.1); RED CELL DISTRIBUTION WIDTH 13.9 % (11.5-14.5); WHITE BLOOD COUNT 5.8 10^3/ul (4.5-11.0)
[2018-03-05 13:17] LABS: VENOUS BLOOD GAS BASE EXCESS -0.7 mmol/L (0.0-2.0); VENOUS BLOOD GAS PO2 154 mm/Hg (30-55); VENOUS BLOOD PH 7.24 (7.32-7.43)
--- NOTE | 2018-03-05 13:27 | CT ---
Date of service: 03/05/2018 PROCEDURE: CT Chest without contrast HISTORY: h/o choking w/ possible asphixiation COMPARISON: 06/06/2017 TECHNIQUE: Contiguous axial images were obtained through the chest without intravenous contrast enhancement. Sagittal and coronal reconstructions were performed. Radiation dose (DLP): 305 mGy-cm. This CT exam was performed using one or more of the following dose reduction techniques: Automated exposure control, adjustment of the mA and/or kV according to patient size, and/or use of iterative reconstruction technique. FINDINGS: LUNGS: There is dense consolidation in the left lower lobe consistent with pneumonia. There is minimal atelectasis at the right lung base. The upper lung stephenson are clear. MEDIASTINUM: Unremarkable thoracic aorta. No aneurysm. Normal sized heart. Main pulmonary artery unremarkable. No vascular congestion. No lymphadenopathy. PLEURA: No pleural fluid. No pneumothorax. BONES: No fracture. No destructive lesion. UPPER ABDOMEN: Grossly unremarkable. OTHER FINDINGS: None. IMPRESSION: There is dense consolidation in the left lower lobe consistent with pneumonia. There is minimal atelectasis at the right lung base. The upper lung stephenson are clear.
--- NOTE | 2018-03-05 14:17 | RAD ---
Date of service: 03/05/2018 PROCEDURE: CHEST RADIOGRAPH, 1 VIEW HISTORY: h/o choking w/ possible asphixiation COMPARISON: 02/01/2018 FINDINGS: LUNGS: Clear. PLEURA: No pneumothorax or pleural fluid seen. CARDIOVASCULAR: No radiographic findings to suggest acute or significant cardiovascular disease. OSSEOUS STRUCTURES: No significant abnormalities. VISUALIZED UPPER ABDOMEN: Normal. OTHER FINDINGS: None. IMPRESSION: No active disease. No significant interval change compared to the prior examination(s).
[2018-03-05] MEDS ORDERED: Piperacill/Tazo 4.5gm in NS 4.5 GM/100 ML BAG IVPB STA (14:29)
[2018-03-05] MEDS: cefTRIAXone 1 gm 1 GM/100 ML BAG IVPB SCH (15:32)
[2018-03-05] MEDS: Albuterol-Ipratrop 3 mg / 0.5 (3 ml) UD IH SCH ×2 (15:34→20:08)
--- NOTE | 2018-03-05 16:32 | CARD ---
APPROVED REPORT Date of service: 03/05/2018 EKG Measurement Heart [id number] <Conclusion> Sinus tachycardia Low voltage QRS Right bundle branch block Septal infarct, age undetermined Abnormal ECG
[2018-03-05] MEDS: Azithromycin 500MG/NS 250ml 500 MG/250 ML BAG IVPB SCH (16:33)
[2018-03-05 17:00] LABS: ALB/GLOB RATIO 1.1 (1.1-1.8); ALBUMIN 3.6 g/dL (3.0-4.8); BLOOD UREA NITROGEN 19 mg/dL (7-21); CALCIUM 8.8 mg/dL (8.4-10.5); GFR NON-AFRICAN AMERICAN > 60
[2018-03-05 17:05] LABS: ALT/SGPT 55 U/L (7-56); AST/SGOT 67 U/L (14-36)
[2018-03-05 17:17] LABS: B-TYPE NATRIURETIC PEPTIDE 1060 pg/mL (0-450)
[2018-03-06] MEDS: Albuterol-Ipratrop 3 mg / 0.5 (3 ml) UD IH SCH ×4 (01:38→19:19)
--- NOTE | 2018-03-06 01:55 | HP ---
HISTORY OF PRESENT ILLNESS: I was called down to the emergency room to admit her. She is an 82-year-old white female who presents being brought in by ambulance with family for shortness of breath and coughing, could not keep any food down, choking sensation. She was not doing well, also some aspirating and coughing, choking by the family. She has got dementia. PAST MEDICAL HISTORY: She has a past medical history which includes dementia, nonverbal, pneumonia history in the past. She has seizures since 2017. FAMILY HISTORY: She has no family history. SOCIAL HISTORY: Never smoked. No alcohol. No drugs. ALLERGIES: NO KNOWN DRUG ALLERGIES. MEDICATIONS: At this time, do not know the medications she takes. REVIEW OF SYSTEMS: She is demented, unable to answer any questions. She has been shortness of breath and coughing as per family. PHYSICAL EXAMINATION: GENERAL: She is hypertensive, cachectic, thin, frail, alert and oriented but demented. VITAL SIGNS: She has a 97.6 temp, 122 pulse, 38 respiratory rate, 162/95 blood pressure, 100% O2 saturation. HEENT: Head is atraumatic, normocephalic. Extraocular muscles intact. Pupils equally reactive to light. Throat is dry. NECK: Supple. LUNGS: Decreased breath sounds bilaterally. There is rhonchi bilaterally with some wheezes. No crackles. HEART: Regular rate. Normal S1, S2. ABDOMEN: Soft, nontender. Positive bowel sounds. No guarding. No rebound. No CVA tenderness. EXTREMITIES: No edema. NEUROLOGIC: GCS is 15. Cranial nerves II-XII grossly intact. SKIN: Warm and dry. No apparent rashes or ulcers at this time for what I could tell. LYMPHATICS: Thyroid midline. LABORATORY DATA: She had a bunch of tests done. She had a chest x-ray, which showed nothing but the CAT scan of the chest showed there is dense consolidation on left lower lobe consistent with pneumonia. There is minimal atelectasis in the right lung base. She also had blood test. The venous blood test is 4.2. She has a 154 pO2. She had a 5.8 white count, 11.4 hemoglobin, 33.9 hematocrit with 189 platelets. ASSESSMENT AND PLAN: She is very cachectic, thin frail. I do not know how she is going to eat, but will try and feed her. We are going to get the swallow evaluation first, get oxygen, get labs tomorrow, Pulmonary consult, IV Rocephin and Zithromax. [facility] for blood pressure and DuoNebs. She has got a pneumonia. Thanh Lassiter DO
[2018-03-06] MEDS ORDERED: Albuterol-Ipratrop 3 mg / 0.5 (3 ml) UD IH PRN (07:14)
--- NOTE | 2018-03-06 08:28 | CON ---
DATE: 03/06/2018 PULMONARY CONSULTATION REASON FOR PULMONARY CONSULTATION: Pneumonia. REFERRING PHYSICIAN FOR THIS PULMONARY CONSULTATION: Thanh Lassiter DO. History is obtained via extensive discussion with the daughter - at bedside. I have also reviewed the chart at length. The patient is not an adequate historian. HISTORY OF PRESENT ILLNESS: The patient is a chronically ill 82-year-old female, bedridden for many years, with past medical history significant for advanced dementia, seizure disorder, pneumonia in the past, who presents to [facility] with increasing shortness of breath and cough for the past three days. There is no history of sputum production. There is no history of chest pain, coughing up of blood or chest pain - made worse with deep respirations. There is no history of temperatures, chills or infectious exposure. There is no history of night sweats, weight loss or appetite change prior to the above events. No history of leg or calf pains. No history of syncope or diaphoresis. No history of recent travel or trauma. REVIEW OF SYSTEMS: No history of nausea, vomiting or diarrhea. No acute urinary symptoms. No new musculoskeletal complaints. Rest of the review of systems is negative. ALLERGIES: NO KNOWN ALLERGIES. SOCIAL HISTORY: Negative for tobacco, negative for alcohol. FAMILY HISTORY: No inheritable diseases. HOME MEDICATIONS: Not listed in the computer at the present time. PHYSICAL EXAMINATION: GENERAL: The patient appears comfortable this morning. She is not short of breath at rest. VITAL SIGNS: Temperature is 98.6, pulse 70, respirations 18, blood pressure 99/56. Oxygen saturation on nasal cannula is 97-100%. HEENT: Normocephalic, atraumatic. No JVD. CARDIOVASCULAR: Systolic ejection murmur at the lower left sternal border. No S3 gallop. LUNGS: Decreased breath sounds at the bases. Minimal bilateral rhonchi. No wheezing. EXTREMITIES: Contracted. No clubbing, cyanosis or edema. Calves are nontender to palpation. GI: Abdomen is soft, nontender and nondistended. Bowel sounds are positive. SKIN: No acute rash. NEUROLOGIC: Exam limited at the present time. PERTINENT LABORATORY DATA: CAT scan of the chest was done yesterday. There is a patchy infiltrate with air bronchograms noted at the left lower lobe - consistent with pneumonia. CBC: White count 5.8K, hemoglobin 11.4, hematocrit 33.9, platelets of 199,000. Complete metabolic profile: Glucose 125, AST 67. B-type natriuretic peptide 1060. Rest of the metabolic profile is within normal limits. IMPRESSION: 1. Left lower lobe pneumonia. 2. Mild bronchitis. 3. Mild anemia. 4. Advanced dementia. PLAN: Again, I did discuss the case with the daughter at length. I have also reviewed the chart at length. The patient is not an adequate historian. The patient is a chronically ill 82-year-old female, who presents to [facility] with a three-day history of worsening pulmonary symptoms. As above, I did review the CAT scan of the chest. The CAT scan of the chest does show a left lower lobe infiltrate with air bronchograms--- consistent with pneumonia. Dr. Benítez (Infectious Disease) has been called on the case for antibiotic usage. I will also order aspiration precautions this morning. On physical exam, there is mild bronchospasm noted. However, there is no significant alveolar-arterial gradient. Oxygen saturation on nasal cannula is 97-100%. I will start the patient on DuoNeb treatments this morning. Repeat morning labs are also pending. The clinical status of the patient does appear improved - compared to the initial presentation. However, the overall status/prognosis for this chronically ill patient ,does remain very guarded. I will discuss the above with Dr. Lassiter this morning. Thank you very much for this pulmonary consultation. Jason Rehman MD [employer]
[2018-03-06 08:47] LABS: HEMOGLOBIN 9.4 g/dL (12.0-16.0); MEAN CELL VOLUME 89.4 fl (80.0-105.0); MEAN CORPUSCULAR HEMOGLOBIN 30.3 pg (25.0-35.0); MEAN CORPUSCULAR HGB CONC 33.9 g/dl (31.0-37.0); MEAN PLATELET VOLUME 9.4 fl (7.0-11.0); RBC 3.1 10^6/uL (3.5-6.1); RED CELL DISTRIBUTION WIDTH 14.2 % (11.5-14.5); WHITE BLOOD COUNT 9.5 10^3/ul (4.5-11.0)
[2018-03-06 08:57] LABS: ALBUMIN 3.4 g/dL (3.0-4.8); ALT/SGPT 51 U/L (7-56); AST/SGOT 42 U/L (14-36); BLOOD UREA NITROGEN 14 mg/dL (7-21); CALCIUM 8.6 mg/dL (8.4-10.5); GFR NON-AFRICAN AMERICAN > 60
[2018-03-06] MEDS: Azithromycin 500MG/NS 250ml 500 MG/250 ML BAG IVPB SCH (09:20)
[2018-03-06] MEDS: cefTRIAXone 1 gm 1 GM/100 ML BAG IVPB SCH (09:20)
--- NOTE | 2018-03-06 10:45 | PN ---
DATE: 03/06/2018 SUBJECTIVE: She is in bed sleeping. Family is present. She is not awaking for me this morning. She is very lethargic. PHYSICAL EXAMINATION: VITAL SIGNS: She came when she had high temp, now the temp is 100.2, it came down to 98.6 with Tylenol, 79 pulse, 99/56 blood pressure, respiratory rate 18, 97% O2 sat on 2 liters. HEAD: Atraumatic, normocephalic. HEART: Regular rate. LUNGS: Decreased breath sounds. Poor inspiration. Hard to hear anything. ABDOMEN: Soft. EXTREMITIES: No edema, but contracted. He is worried about aspiration pneumonia, so we have her on a swallowing study pending. Labs, sodium is 136, potassium 4.5, BUN 19, creatinine 0.5, GFR is greater than 60, blood sugar is 125, calcium is 8.8, magnesium 1.9, total bili is 0.3, AST is 67, ALT is 55, alk phos 57. BNP is high at 1060, total protein is 7. Has 9.5 white count, 9.4 hemoglobin, 27.7 hematocrit with 178 platelets. She is being seen by Pulmonary. She has consults with Infectious Disease and Pulmonary. Infectious Disease will be seeing her this morning. She is now on Zithromax and Rocephin. She had a dose of Zosyn in the ER. I will put the amlodipine on hold with a low blood pressure. Waiting for her to wake up and do well with the swallow eval. She has aspiration precautions and she has a left lower lobe dense pneumonia. We will continue aggressive treatment and care and IV antibiotics. Thanh Lassiter DO
[2018-03-07] MEDS: Albuterol-Ipratrop 3 mg / 0.5 (3 ml) UD IH SCH ×4 (01:39→19:32)
--- NOTE | 2018-03-07 05:58 | CON ---
DATE: 03/06/2018 LOCATION: The patient was seen in room 370, bed 2. CHIEF COMPLAINT: Weakness times several days. HISTORY OF PRESENT ILLNESS: This is an 82-year-old female who was seen earlier with the history of dementia, seizures, pneumonia, Alzheimer's who was seen earlier this year in July and last hospitalization was in July. Patient lives at home. Patient's family cared for the patient. Patient has been contracted. Patient was seen in the emergency room by dementia and nonverbal, has shortness of breath and further weakening. Patient with weakness. Patient was brought to the emergency room. There has been no fevers reported. No chills reported. No chest pain. There is shortness of breath. No abdominal pain. No diarrhea. In the hospital, patient has documented to have fevers. REVIEW OF SYSTEMS: A 12-point review of systems is performed. PAST MEDICAL HISTORY: Significant for Alzheimer's dementia, seizures, history of pneumonia. PAST SURGICAL HISTORY: Noncontributory. ALLERGIES: PATIENT HAS NO KNOWN ALLERGIES. MEDICATIONS AT HOME: Reviewed. PHYSICAL EXAMINATION: GENERAL: The patient is in bed, appearing chronically ill,debilitated, contracted. VITAL SIGNS: Temperature of 98, T-max is 100.4, respiratory rate of 19, it was up to 38, heart rate was up to 122, blood pressure is 120/50. HEENT: Unremarkable. NECK: Supple. LUNGS: Have decreased breath sounds. HEART: Normal S1, S2. ABDOMEN: Soft, nontender. LABORATORY EXAMINATION: Reveals white count of 5.8, hemoglobin of 11, platelet of 189, 69% granulocytosis. Chemistries reveals the patient has a creatinine of 0.5, glucose is 125, AST is 67, BNP is 1060. Patient had a CAT scan of the chest. Left lower lobe consolidation, pneumonia on CAT scan. Blood cultures have no growth. Procalcitonin is pending. Patient is currently on ceftriaxone and azithromycin. We will also add sputum culture and MRSA. ASSESSMENT AND PLAN: Sepsis with left lower community acquired pneumonia, was treated with ceftriaxone and azithromycin. Patient's procalcitonin is pending. Blood cultures no growth at 24 hours. Sputum cultures are negative. Methicillin-resistant Staphylococcus aureus is pending. Patient's EKG reveals a QTc of 480. I will make further recommendations upon the availability of the initial results and response. Follow closely with you. Jony Benítez MD
--- NOTE | 2018-03-07 08:07 | PN ---
DATE: 03/07/2018 PULMONARY NOTE SUBJECTIVE: The patient appears comfortable this morning. She is not short of breath at rest. PHYSICAL EXAMINATION: VITAL SIGNS: Temperature is 100.1, pulse 61, respirations 18, blood pressure 105/75. Oxygen saturation on room air is 97%. HEENT: Normocephalic, atraumatic. No JVD. CARDIOVASCULAR: Systolic ejection murmur at the lower left sternal border. No S3 gallop. LUNGS: Decreased breath sounds at the bases. Less rhonchi. No wheezing. EXTREMITIES: No clubbing, cyanosis, or edema. Calves are nontender to palpation. GASTROINTESTINAL: Abdomen is soft, nontender, and nondistended. Bowel sounds are positive. SKIN: No acute rash. NEUROLOGIC: Limited at the present time. IMPRESSION: 1. Left lower lobe pneumonia. 2. Mild bronchitis. 3. Mild anemia. 4. Advanced dementia. PLAN: The patient appears comfortable this morning. She is not short of breath at rest. I did discuss the case with the daughter - at bedside this morning. The daughter stated that the patient had a good night. On physical exam, there is certainly less bronchospasm noted. In addition, there is no significant alveolar-arterial gradient. I will continue with the current nebulizer treatments for now. I will also continue with the aspiration precautions. The patient remains on antibiotic therapy - as per Infectious Disease. Input by Dr. Benítez is noted. There is a slight increase in temperatures this morning. Repeat a.m. labs are pending. Clinical status of the patient does appear improved - compared to the initial presentation. However, the future status/prognosis for this elderly patient remains guarded. I will discuss the above with Dr. Lassiter this morning. Jason Rehman MD [email or web address]
[2018-03-07 08:26] LABS: HEMOGLOBIN 9.7 g/dL (12.0-16.0); MEAN CELL VOLUME 90.2 fl (80.0-105.0); MEAN CORPUSCULAR HEMOGLOBIN 29.8 pg (25.0-35.0); MEAN PLATELET VOLUME 9.5 fl (7.0-11.0); RBC 3.26 10^6/uL (3.5-6.1); RED CELL DISTRIBUTION WIDTH 14.3 % (11.5-14.5); WHITE BLOOD COUNT 5.4 10^3/ul (4.5-11.0)
[2018-03-07 08:32] LABS: ALB/GLOB RATIO 1.1 (1.1-1.8); ALBUMIN 3.6 g/dL (3.0-4.8); ALT/SGPT 41 U/L (7-56); AST/SGOT 40 U/L (14-36); BLOOD UREA NITROGEN 17 mg/dL (7-21); CALCIUM 8.9 mg/dL (8.4-10.5); GFR NON-AFRICAN AMERICAN > 60
--- NOTE | 2018-03-07 08:50 | PN ---
DATE: 03/07/2018 SUBJECTIVE: She actually woke up today. Her eyes are open. She is nonverbal. This is basically her baseline. The daughter is there with her. She wants to take her home. I do not think she is ready. I discussed this with Pulmonary. He wants to keep her. She does have a left lower lobe pneumonia, a little bronchitis, anemia, advanced dementia. She had a swallow evaluation last night. of an aspiration pneumonia and now she is able to eat just modify consistency diet as per dietary. She is on DuoNebs, Rocephin, Zithromax. OBJECTIVE: VITAL SIGNS: She has a 100.1 temperature, 65 pulse this morning, 105/75 blood pressure, 97% O2 saturation, so she had a temperature last night. HEENT: Head: Atraumatic, normocephalic. She is actually looking at me, but nonverbal, at the baseline. HEART: Regular rate. LUNGS: Decreased breath sounds. Poor inspiration, but that is her baseline also. Less congestion. ABDOMEN: Soft. EXTREMITIES: No edema, but contracted. DATA: She has a 9.5 white count, 9.4 hemoglobin, 27.7 hematocrit, 178 platelets. She has 139 sodium, potassium 4.4, BUN 14, creatinine 0.5. GFR is greater than 60. Sugar is 89, calcium is 8.6, total bili is 0.5. AST is 42, ALT is 51, alk phos 67, total protein 6.7. Procalcitonin is 0.24. I spoke with Dr. Rehman. He wants to keep her. Does not want to sent her on that tablet. She does not think she is done with the pneumonia. Discussed with the daughter. We will check her labs tomorrow. When I get the okay from Pulmonary, transfer her to tablets, I will get her home. This is a patient who has got left lower lobe pneumonia. Thanh Lassiter DO MTDD
[2018-03-07] MEDS: cefTRIAXone 1 gm 1 GM/100 ML BAG IVPB SCH (09:30)
[2018-03-07] MEDS: Azithromycin 500MG/NS 250ml 500 MG/250 ML BAG IVPB SCH (09:30)
--- NOTE | 2018-03-07 13:10 | CP.PCM.PN ---
Subjective - Date & Time of Evaluation Date of Evaluation: 03/07/18 Time of Evaluation: 08:45 - Subjective Subjective: Still with cough, no fevers, not in distress, still with low grade fever. Objective - Vital Signs/Intake and Output Vital Signs (last 24 hours): Temp Pulse Resp BP Pulse Ox 98.0 F 65 20 103/49 L 97 03/07/18 06:00 03/07/18 10:00 03/07/18 06:00 03/07/18 06:00 03/07/18 06:00 - Medications Medications: Current Medications Acetaminophen (Tylenol 650 Mg Supp) 650 mg RC Q4H PRN PRN Reason: Fever >100.4 F Last Admin: 03/07/18 00:24 Dose: 650 mg Albuterol/Ipratropium (Duoneb 3 Mg/0.5 Mg (3 Ml) Ud) 3 ml IH [id number] JENNIFER Last Admin: 03/07/18 07:47 Dose: 3 ml Albuterol/Ipratropium (Duoneb 3 Mg/0.5 Mg (3 Ml) Ud) 3 ml IH Q2H PRN PRN Reason: Shortness of Breath Ceftriaxone Sodium (Rocephin 1 Gram Ivpb) 1 gm in 100 mls @ 100 mls/hr IVPB DAILY JENNIFER; Protocol Last Admin: 03/07/18 09:30 Dose: 100 mls/hr Azithromycin (Zithromax 500mg In Ns) 500 mg in 250 mls @ 167 mls/hr IVPB DAILY JENNIFER; Protocol Last Admin: 03/07/18 09:30 Dose: 167 mls/hr - Labs Labs: 03/07/18 08:00 03/07/18 08:00 - Constitutional Appears: No Acute Distress, Chronically Ill - Head Exam Head Exam: NORMAL INSPECTION - Neck Exam Neck Exam: absent: Meningismus - Respiratory Exam Respiratory Exam: Decreased Breath Sounds - Cardiovascular Exam Cardiovascular Exam: +S1, +S2 - GI/Abdominal Exam GI & Abdominal Exam: Soft. absent: Tenderness Assessment and Plan - Assessment and Plan (Free Text) Plan: Assessment sepsis due to left lower lobe community-acquired pneumonia history of HCAP right sided, with acute bronchitis Alzheimer's dementia seizure disorder recent pneumonia Plan continue Rocephin and Zithromax day 2 pending final cultures (blood cx negative so far); follow up urine Legionella Ag; PCT is 0.24 will need at least 24 hours of being afebrile prior to switching to PO antibiotics will continue to monitor clinically
[2018-03-08] MEDS: Albuterol-Ipratrop 3 mg / 0.5 (3 ml) UD IH SCH ×4 (01:50→19:56)
[2018-03-08 06:46] LABS: HEMOGLOBIN 10.3 g/dL (12.0-16.0); MEAN CELL VOLUME 89.6 fl (80.0-105.0); MEAN CORPUSCULAR HEMOGLOBIN 29.9 pg (25.0-35.0); MEAN CORPUSCULAR HGB CONC 33.3 g/dl (31.0-37.0); MEAN PLATELET VOLUME 9.6 fl (7.0-11.0); RBC 3.45 10^6/uL (3.5-6.1); WHITE BLOOD COUNT 5.9 10^3/ul (4.5-11.0)
[2018-03-08 06:57] LABS: ALBUMIN 3.8 g/dL (3.0-4.8); ALT/SGPT 39 U/L (7-56); AST/SGOT 39 U/L (14-36); BLOOD UREA NITROGEN 19 mg/dL (7-21); CALCIUM 8.9 mg/dL (8.4-10.5); GFR NON-AFRICAN AMERICAN > 60
[2018-03-08] MEDS: cefTRIAXone 1 gm 1 GM/100 ML BAG IVPB SCH (09:46)
[2018-03-08] MEDS: Azithromycin 500MG/NS 250ml 500 MG/250 ML BAG IVPB SCH (10:37)
--- NOTE | 2018-03-08 11:37 | PN ---
DATE: 03/08/2018 PULMONARY PROGRESS NOTE SUBJECTIVE: Patient was seen and examined at bedside with family present at bedside. She is receiving intravenous antibiotics Rocephin and azithromycin as well as nebulizer treatments. PHYSICAL EXAMINATION GENERAL: Her temperature is 97, pulse 76, respirations 20, pulse oxymetry 97% on nasal cannula. HEENT: Within normal limits. NECK: Supple with no jugular vein distention. CARDIOVASCULAR: S1, S2. No S3. Regular. PULMONARY: Diminished breath sounds at both bases with few scattered rhonchi. No wheezing. GASTROINTESTINAL: Soft, nontender, no organomegaly. EXTREMITIES: No pedal edema, no cyanosis. SKIN: No acute skin rash. NEUROLOGIC: Limited at present time. LABORATORY DATA: Additional data reviewed. Today's serum sodium is 138, potassium 4.3, chloride 105. WBC 5.9, hemoglobin of 10.3. ASSESSMENT: 1. Left lower lobe pneumonia 2. Acute bronchitis. 3. Advanced dementia. PLAN: Patient appears more comfortable. This morning, she is not short of breath. She is still on nasal cannula with good oxygen saturation. We can try and wean the oxygen. She has no bronchospasm currently on exam. Continue with current nebulizer treatments and antibiotics as per Infectious Disease, Dr. Benítez. We will follow closely. Elgin Ortega MD
[2018-03-08] MEDS: Tobramycin 0.3% OPHT SOLN OD SCH ×2 (12:34→18:19)
--- NOTE | 2018-03-08 14:00 | CP.PCM.PN ---
<Bess Robertson - Last Filed: 03/08/18 13:55> Subjective - Date & Time of Evaluation Date of Evaluation: 03/08/18 Time of Evaluation: 08:30 - Subjective Subjective: PGY-1 Bess Robertson D.O. Medicine progress note for Dr. Capone's service: Patient was seen and examined this morning. Her daughter was at bedside. Patient was sleeping comfortably as she reportedly did not sleep last night. Daughter states that patient's SOB and cough are improving. Patient eats pureed food. She is concerned about her R eye tearing. Daughter reports that patient has 24/ care at home between family and outside services. Objective - Vital Signs/Intake and Output Vital Signs (last 24 hours): Temp Pulse Resp BP Pulse Ox 99.6 F 106 H 20 132/68 97 03/08/18 09:45 03/08/18 10:00 03/08/18 08:48 03/08/18 08:48 03/08/18 08:48 - Medications Medications: Current Medications Acetaminophen (Tylenol 650 Mg Supp) 650 mg RC Q4H PRN PRN Reason: Fever >100.4 F Last Admin: 03/08/18 09:45 Dose: 650 mg Albuterol/Ipratropium (Duoneb 3 Mg/0.5 Mg (3 Ml) Ud) 3 ml IH [id number] JENNIFER Last Admin: 03/08/18 01:50 Dose: 3 ml Albuterol/Ipratropium (Duoneb 3 Mg/0.5 Mg (3 Ml) Ud) 3 ml IH Q2H PRN PRN Reason: Shortness of Breath Ceftriaxone Sodium (Rocephin 1 Gram Ivpb) 1 gm in 100 mls @ 100 mls/hr IVPB DAILY JENNIFER; Protocol Last Admin: 03/08/18 09:46 Dose: 100 mls/hr Azithromycin (Zithromax 500mg In Ns) 500 mg in 250 mls @ 167 mls/hr IVPB DAILY JENNIFER; Protocol Last Admin: 03/08/18 10:37 Dose: 167 mls/hr Tobramycin Sulfate (Tobrex 0.3% Ophth Soln) 1 drop OD BID JENNIFER Last Admin: 03/08/18 12:34 Dose: 1 drop - Labs Labs: 03/08/18 06:00 03/08/18 06:00 - Constitutional Appears: No Acute Distress - Head Exam Head Exam: ATRAUMATIC, NORMAL INSPECTION - Eye Exam Eye Exam: EOMI, Normal appearance, PERRL - ENT Exam ENT Exam: Mucous Membranes Moist, Normal Exam - Neck Exam Neck Exam: Normal Inspection - Respiratory Exam Respiratory Exam: Decreased Breath Sounds, NORMAL BREATHING PATTERN. absent: Respiratory Distress - Cardiovascular Exam Cardiovascular Exam: REGULAR RHYTHM, +S1, +S2 - GI/Abdominal Exam GI & Abdominal Exam: Soft. absent: Tenderness - Rectal Exam Rectal Exam: Deferred - Extremities Exam Extremities Exam: absent: Pedal Edema Additional comments: thin, warm - Neurological Exam Additional comments: sleeping - Skin Skin Exam: Dry, Intact, Normal Color, Warm Assessment and Plan - Assessment and Plan (Free Text) Assessment: Patient is an 82 yo female with a history of dementia who presented to the ED with SOB and cough. She was found to have LLL PNA. Plan: PNA, LLL - CT chest: dense consolidation LLL - Blood Cx no growth >3 days - No leukocytosis - Supplemental O2 via NC- titrate 88-92% - Last fever 03/05 100.4 - Tylenol 650 mg PO/RC Q4H PRN - Duoneb Q6H JENNIFER, Q2H PRN - Azithromycin 500 mg IV daily - Rocephin 1 g IV daily - Pulmonology consulted (Ori) - ID consulted (Jeyson) R eye tearing/discharge - Tobramycin eye drops IVF: not indicated Diet: dysphagia puredd GI ppx: not inidcated VTE ppx: SCDs Code status: full code Case was discussed with attending, Dr. Capone. <Magdaleno Capone - Last Filed: 03/09/18 16:08> Objective - Vital Signs/Intake and Output Vital Signs (last 24 hours): Temp Pulse Resp BP Pulse Ox 98.6 F 95 H 20 128/64 96 03/09/18 08:35 03/09/18 08:35 03/09/18 08:35 03/09/18 08:35 03/09/18 08:35 Intake and Output: 03/09/18 03/09/18 06:59 18:59 Intake Total 830 Balance 830 - Medications Medications: Current Medications Acetaminophen (Tylenol 650 Mg Supp) 650 mg RC Q4H PRN PRN Reason: Fever >100.4 F Last Admin: 03/08/18 09:45 Dose: 650 mg Albuterol/Ipratropium (Duoneb 3 Mg/0.5 Mg (3 Ml) Ud) 3 ml IH [id number] JENNIFER Last Admin: 03/09/18 14:44 Dose: 3 ml Albuterol/Ipratropium (Duoneb 3 Mg/0.5 Mg (3 Ml) Ud) 3 ml IH Q2H PRN PRN Reason: Shortness of Breath Ceftriaxone Sodium (Rocephin 1 Gram Ivpb) 1 gm in 100 mls @ 100 mls/hr IVPB DAILY JENNIFER; Protocol Last Admin: 03/09/18 11:16 Dose: 100 mls/hr Azithromycin (Zithromax 500mg In Ns) 500 mg in 250 mls @ 167 mls/hr IVPB DAILY JENNIFER; Protocol Last Admin: 03/08/18 10:37 Dose: 167 mls/hr Tobramycin Sulfate (Tobrex 0.3% [facility]) 1 drop OD BID JENNIFER Last Admin: 03/09/18 11:17 Dose: 1 drop - Labs Labs: 03/09/18 05:00 03/09/18 05:00 Attending/Attestation - Attestation I have personally seen and examined this patient.: Yes I have fully participated in the care of the patient.: Yes I have reviewed all pertinent clinical information, including history, physical exam and plan: Yes Notes (Text): 03/09/18 16:06 Attending note /covering Dr. Mcclellan; Patient seen and examined with resident. Patient does not communicate much. Patient's daughter by the bedside. Family gives total care to elroy patient at home also. Family assists patient with feeding. Patient is an 82 year old female with a history of dementia who presented to the ED with SOB and cough. She was found to have LLL pneumonia. Currently on IV Rocephin and Zithromax. ID evaluation appreciated. Continue oxygen when necessary. Continue DuoNeb treatment. Pulmonary evaluation appreciated. Patient is afebrile. Case discussed with ID in detail. Possible discharge home tomorrow if clinically stable. Upon discharge patient will follow-up with PMD Dr. mcclellan. 03/09/18 16:08
--- NOTE | 2018-03-08 16:35 | CP.PCM.PN ---
Subjective - Date & Time of Evaluation Date of Evaluation: 03/08/18 Time of Evaluation: 13:25 - Subjective Subjective: No fevers, not in distress but had a temp of 99.6 F this morning. Objective - Vital Signs/Intake and Output Vital Signs (last 24 hours): Temp Pulse Resp BP Pulse Ox 99.6 F 106 H 20 132/68 97 03/08/18 09:45 03/08/18 10:00 03/08/18 08:48 03/08/18 08:48 03/08/18 08:48 - Medications Medications: Current Medications Acetaminophen (Tylenol 650 Mg Supp) 650 mg RC Q4H PRN PRN Reason: Fever >100.4 F Last Admin: 03/08/18 09:45 Dose: 650 mg Albuterol/Ipratropium (Duoneb 3 Mg/0.5 Mg (3 Ml) Ud) 3 ml IH [id number] JENNIFER Last Admin: 03/08/18 01:50 Dose: 3 ml Albuterol/Ipratropium (Duoneb 3 Mg/0.5 Mg (3 Ml) Ud) 3 ml IH Q2H PRN PRN Reason: Shortness of Breath Ceftriaxone Sodium (Rocephin 1 Gram Ivpb) 1 gm in 100 mls @ 100 mls/hr IVPB DAILY JENNIFER; Protocol Last Admin: 03/08/18 09:46 Dose: 100 mls/hr Azithromycin (Zithromax 500mg In Ns) 500 mg in 250 mls @ 167 mls/hr IVPB DAILY JENNIFER; Protocol Last Admin: 03/08/18 10:37 Dose: 167 mls/hr Tobramycin Sulfate (Tobrex 0.3% [facility]) 1 drop OD BID JENNIFER Last Admin: 03/08/18 12:34 Dose: 1 drop - Labs Labs: 03/08/18 06:00 03/08/18 06:00 - Constitutional Appears: No Acute Distress, Chronically Ill - Head Exam Head Exam: NORMAL INSPECTION - Respiratory Exam Respiratory Exam: Decreased Breath Sounds - Cardiovascular Exam Cardiovascular Exam: +S1, +S2 - GI/Abdominal Exam GI & Abdominal Exam: Soft. absent: Tenderness Assessment and Plan - Assessment and Plan (Free Text) Plan: Assessment sepsis due to left lower lobe community-acquired pneumonia, slowly improving history of HCAP right sided, with acute bronchitis Alzheimer's dementia seizure disorder recent pneumonia Plan continue Rocephin and Zithromax day 3; blood cx negative; follow up urine Legionella Ag; PCT is 0.24 - complete 5-7 days of antibiotics May be able to switch to PO antibiotics tomorrow will continue to monitor clinically
[2018-03-09] MEDS: Albuterol-Ipratrop 3 mg / 0.5 (3 ml) UD IH SCH ×3 (01:31→14:44)
[2018-03-09 06:49] LABS: ALBUMIN 3.9 g/dL (3.0-4.8); ALT/SGPT 30 U/L (7-56); AST/SGOT 37 U/L (14-36); BLOOD UREA NITROGEN 15 mg/dL (7-21); CALCIUM 8.9 mg/dL (8.4-10.5); GFR NON-AFRICAN AMERICAN > 60
[2018-03-09 07:20] LABS: BASO # 0.02 K/mm3 (0.0-2.0); BASO % 0.4 % (0.0-3.0); EOS # 0.1 (0.0-0.7); EOS % 2.4 % (1.5-5.0); GRAN # 3.44 (1.4-6.5); GRAN % 74.2 % (50.0-68.0); HEMOGLOBIN 10.1 g/dL (12.0-16.0); LYMPH # 0.7 (1.2-3.4); LYMPH % 15.9 % (22.0-35.0); MEAN CORPUSCULAR HEMOGLOBIN 30.1 pg (25.0-35.0); MEAN CORPUSCULAR HGB CONC 33.8 g/dl (31.0-37.0); MEAN PLATELET VOLUME 9.6 fl (7.0-11.0); MONO # 0.3 (0.1-0.6); MONO % 7.1 % (1.0-6.0); RBC 3.36 10^6/uL (3.5-6.1); RED CELL DISTRIBUTION WIDTH 13.7 % (11.5-14.5); WHITE BLOOD COUNT 4.6 10^3/ul (4.5-11.0)
[2018-03-09 08:35] VITALS: BP 128/64; PULSE 95; RESP 20; TEMP 98.6; O2SAT 96
[2018-03-09] MEDS: cefTRIAXone 1 gm 1 GM/100 ML BAG IVPB SCH (11:16)
[2018-03-09] MEDS: Tobramycin 0.3% OPHT SOLN OD SCH (11:17)
--- NOTE | 2018-03-09 12:57 | PN ---
DATE: 03/09/2018 PULMONARY PROGRESS NOTE SUBJECTIVE: The patient was seen and examined at bedside. She is currently receiving inhalation treatment with DuoNeb. She is on intravenous Rocephin and Zithromax. The patient was examined with family present at bedside. PHYSICAL EXAMINATION: VITAL SIGNS: Temperature is 98.4, pulse 76, respirations 20, pulse oximetry is 95 on nasal cannula. HEAD, EARS, NOSE AND THROAT: Normocephalic and atraumatic. NECK: Supple with no jugular vein distention. CARDIOVASCULAR: S1, S2. No S3, regular. PULMONARY: Diminished breath sounds at both bases with a few crackles. No wheezing. GI: Soft, nontender. No organomegaly. EXTREMITIES: No pedal edema, no cyanosis. SKIN: No acute skin rash. NEUROLOGIC: Limited at present time. The patient has severe dementia, is actually resisting examination. ASSESSMENT: 1. Left lower lobe pneumonia, clinically improving. 2. Acute bronchitis. 3. Advanced dementia. PLAN: The patient appears stable and comfortable. She is still on double antibiotics and inhalation therapy. Chest x-ray should be repeated to follow progress of her left lower lobe pneumonia. Elgin Ortega MD
--- NOTE | 2018-03-09 14:29 | CP.PCM.DIS ---
<Bess Robertson - Last Filed: 03/09/18 15:21> Provider - Provider Date of Admission: 03/05/18 14:57 Attending physician: Magdaleno Capone MD Primary care physician: Dr. Mcclellan Consults: ID pulmonology Time Spent in preparation of Discharge (in minutes): 45 Diagnosis - Discharge Diagnosis (1) Pneumonia Status: Acute Priority: High Hospital Course - Lab Results Lab Results: Micro Results 03/05/18 12:50 Blood-Venous Blood Culture - Preliminary NO GROWTH AFTER 4 DAYS 03/05/18 12:35 Blood-Venous Blood Culture - Preliminary NO GROWTH AFTER 4 DAYS Most Recent Lab Values WBC 4.6 10^3/ul (4.5-11.0) D 03/09/18 05:00 RBC 3.36 10^6/uL (3.5-6.1) L 03/09/18 05:00 Hgb 10.1 g/dL (12.0-16.0) L 03/09/18 05:00 Hct 29.9 % (36.0-48.0) L 03/09/18 05:00 MCV 89.0 fl (80.0-105.0) 03/09/18 05:00 MCH 30.1 pg (25.0-35.0) 03/09/18 05:00 MCHC 33.8 g/dl (31.0-37.0) 03/09/18 05:00 RDW 13.7 % (11.5-14.5) 03/09/18 05:00 Plt Count 215 10^3/uL (120.0-450.0) 03/09/18 05:00 MPV 9.6 fl (7.0-11.0) 03/09/18 05:00 Gran % 74.2 % (50.0-68.0) H 03/09/18 05:00 Lymph % (Auto) 15.9 % (22.0-35.0) L 03/09/18 05:00 Cross % (Auto) 7.1 % (1.0-6.0) H 03/09/18 05:00 Eos % (Auto) 2.4 % (1.5-5.0) 03/09/18 05:00 Baso % (Auto) 0.4 % (0.0-3.0) 03/09/18 05:00 Gran # 3.44 (1.4-6.5) 03/09/18 05:00 Lymph # (Auto) 0.7 (1.2-3.4) L 03/09/18 05:00 Cross # (Auto) 0.3 (0.1-0.6) 03/09/18 05:00 Eos # (Auto) 0.1 (0.0-0.7) 03/09/18 05:00 Baso # (Auto) 0.02 K/mm3 (0.0-2.0) 03/09/18 05:00 pO2 154 mm/Hg (30-55) H 03/05/18 13:00 VBG pH 7.24 (7.32-7.43) L 03/05/18 13:00 VBG pCO2 66.0 (40-60) H* 03/05/18 13:00 VBG HCO3 28.3 mmol/l (21-28) H 03/05/18 13:00 VBG Total CO2 30.3 mmol.L (22-28) H 03/05/18 13:00 VBG O2 Sat (Calc) 99.7 % (40-65) H 03/05/18 13:00 VBG Base Excess -0.7 mmol/L (0.0-2.0) L 03/05/18 13:00 VBG Potassium 4.2 mmol/L (3.6-5.2) 03/05/18 13:00 Sodium 136.0 mmol/L (132-148) 03/05/18 13:00 Chloride 105.0 mmol/L (98-107) 03/05/18 13:00 Glucose 113 mg/dl (65-105) H 03/05/18 13:00 Lactate 2.0 mmol/L (0.7-2.1) 03/05/18 13:00 FiO2 21.0 % 03/05/18 13:00 Sodium 137 mmol/L (132-148) 03/09/18 05:00 Potassium 4.4 mmol/L (3.6-5.0) 03/09/18 05:00 Chloride 103 mmol/L (98-107) 03/09/18 05:00 Carbon Dioxide 26 mmol/L (21-33) 03/09/18 05:00 Anion Gap 13 (10-20) 03/09/18 05:00 BUN 15 mg/dL (7-21) 03/09/18 05:00 Creatinine 0.5 mg/dl (0.7-1.2) L 03/09/18 05:00 Est GFR ( Amer) > 60 03/09/18 05:00 Est GFR (Non-Af Amer) > 60 03/09/18 05:00 Random Glucose 100 mg/dL (70-110) 03/09/18 05:00 Calcium 8.9 mg/dL (8.4-10.5) 03/09/18 05:00 Phosphorus 3.6 mg/dL (2.5-4.5) 03/09/18 05:00 Magnesium 2.0 mg/dL (1.7-2.2) 03/09/18 05:00 Total Bilirubin 0.5 mg/dL (0.2-1.3) 03/09/18 05:00 AST 37 U/L (14-36) H 03/09/18 05:00 ALT 30 U/L (7-56) 03/09/18 05:00 Alkaline Phosphatase 74 U/L (38-126) 03/09/18 05:00 NT-Pro-B Natriuret Pep 1060 pg/mL (0-450) H 03/05/18 15:25 Total Protein 7.6 g/dL (5.8-8.3) 03/09/18 05:00 Albumin 3.9 g/dL (3.0-4.8) 03/09/18 05:00 Globulin 3.7 gm/dL 03/09/18 05:00 Albumin/Globulin Ratio 1.0 (1.1-1.8) L 03/09/18 05:00 Procalcitonin 0.24 NG/ML (0.19-0.49) 03/06/18 06:30 Venous Blood Potassium 4.2 mmol/L (3.6-5.2) 03/05/18 13:00 - Hospital Course Hospital Course: Patient is an 82 yo female with a history of dementia who presented to the ED with SOB and cough. She also could not keep any food down and she was having a choking sensation. She was found to have LLL PNA on CT chest and CXR. She is very frail. She was treated with IV Rocephin and Azithromycin. She received Duoneb breathing treatments. Pulmonology and ID were consulted. She was given supplemental O2 via NC and was saturating well. She was initially place don aspiration precautions and had a swallow evaluation. Patient slowly clinically improved. She was able to eat pureed food, which is her baseline. Upon discharge, her congestion improved. Her lungs were clear. She was saturating well off of supplemental O2. Patient had a good appetite. She was afebrile >48 hrs. She had no leukocytosis. She will return home with family and services. Discharge Exam - Head Exam Head Exam: ATRAUMATIC, NORMAL INSPECTION - Eye Exam Eye Exam: EOMI, Normal appearance - ENT Exam ENT Exam: Mucous Membranes Moist - Respiratory Exam Respiratory Exam: Clear to PA & Lateral, NORMAL BREATHING PATTERN, UNREMARKABLE. absent: Respiratory Distress - Cardiovascular Exam Cardiovascular Exam: REGULAR RHYTHM, +S1, +S2 - GI/Abdominal Exam GI & Abdominal Exam: Normal Bowel Sounds, Soft. absent: Tenderness - Rectal Exam Rectal Exam: Deferred - Extremities Exam Extremities exam: normal inspection - Neurological Exam Neurological exam: Alert, CN II-XII Intact Discharge Plan - Discharge Medications Prescriptions: Azithromycin [Zithromax] 500 mg PO DAILY #5 tablet Cefpodoxime [Vantin] 200 mg PO BID #10 tab - Follow Up Plan Condition: IMPROVED Disposition: HOME/ ROUTINE Instructions: Pneumonia, Adult (DC) Additional Instructions: Please follow-up with your primary care provider, Dr. Mcclellan, within 1 week of discharge. You will be given a prescription for Vantin and Azithromycin (antibiotics) for 5 days. Please take until all pills completed. If symptoms return, present to the nearest emergency room. Referrals: Thanh Mcclellan DO [Staff Provider] - <Magdaleno Capone - Last Filed: 03/09/18 16:09> Provider - Provider Date of Admission: 03/05/18 14:57 Attending physician: Magdaleno Capone MD Hospital Course - Lab Results Lab Results: Micro Results 03/05/18 12:50 Blood-Venous Blood Culture - Preliminary NO GROWTH AFTER 4 DAYS 03/05/18 12:35 Blood-Venous Blood Culture - Preliminary NO GROWTH AFTER 4 DAYS Most Recent Lab Values WBC 4.6 10^3/ul (4.5-11.0) D 03/09/18 05:00 RBC 3.36 10^6/uL (3.5-6.1) L 03/09/18 05:00 Hgb 10.1 g/dL (12.0-16.0) L 03/09/18 05:00 Hct 29.9 % (36.0-48.0) L 03/09/18 05:00 MCV 89.0 fl (80.0-105.0) 03/09/18 05:00 MCH 30.1 pg (25.0-35.0) 03/09/18 05:00 MCHC 33.8 g/dl (31.0-37.0) 03/09/18 05:00 RDW 13.7 % (11.5-14.5) 03/09/18 05:00 Plt Count 215 10^3/uL (120.0-450.0) 03/09/18 05:00 MPV 9.6 fl (7.0-11.0) 03/09/18 05:00 Gran % 74.2 % (50.0-68.0) H 03/09/18 05:00 Lymph % (Auto) 15.9 % (22.0-35.0) L 03/09/18 05:00 Cross % (Auto) 7.1 % (1.0-6.0) H 03/09/18 05:00 Eos % (Auto) 2.4 % (1.5-5.0) 03/09/18 05:00 Baso % (Auto) 0.4 % (0.0-3.0) 03/09/18 05:00 Gran # 3.44 (1.4-6.5) 03/09/18 05:00 Lymph # (Auto) 0.7 (1.2-3.4) L 03/09/18 05:00 Cross # (Auto) 0.3 (0.1-0.6) 03/09/18 05:00 Eos # (Auto) 0.1 (0.0-0.7) 03/09/18 05:00 Baso # (Auto) 0.02 K/mm3 (0.0-2.0) 03/09/18 05:00 pO2 154 mm/Hg (30-55) H 03/05/18 13:00 VBG pH 7.24 (7.32-7.43) L 03/05/18 13:00 VBG pCO2 66.0 (40-60) H* 03/05/18 13:00 VBG HCO3 28.3 mmol/l (21-28) H 03/05/18 13:00 VBG Total CO2 30.3 mmol.L (22-28) H 03/05/18 13:00 VBG O2 Sat (Calc) 99.7 % (40-65) H 03/05/18 13:00 VBG Base Excess -0.7 mmol/L (0.0-2.0) L 03/05/18 13:00 VBG Potassium 4.2 mmol/L (3.6-5.2) 03/05/18 13:00 Sodium 136.0 mmol/L (132-148) 03/05/18 13:00 Chloride 105.0 mmol/L (98-107) 03/05/18 13:00 Glucose 113 mg/dl (65-105) H 03/05/18 13:00 Lactate 2.0 mmol/L (0.7-2.1) 03/05/18 13:00 FiO2 21.0 % 03/05/18 13:00 Sodium 137 mmol/L (132-148) 03/09/18 05:00 Potassium 4.4 mmol/L (3.6-5.0) 03/09/18 05:00 Chloride 103 mmol/L (98-107) 03/09/18 05:00 Carbon Dioxide 26 mmol/L (21-33) 03/09/18 05:00 Anion Gap 13 (10-20) 03/09/18 05:00 BUN 15 mg/dL (7-21) 03/09/18 05:00 Creatinine 0.5 mg/dl (0.7-1.2) L 03/09/18 05:00 Est GFR ( Amer) > 60 03/09/18 05:00 Est GFR (Non-Af Amer) > 60 03/09/18 05:00 Random Glucose 100 mg/dL (70-110) 03/09/18 05:00 Calcium 8.9 mg/dL (8.4-10.5) 03/09/18 05:00 Phosphorus 3.6 mg/dL (2.5-4.5) 03/09/18 05:00 Magnesium 2.0 mg/dL (1.7-2.2) 03/09/18 05:00 Total Bilirubin 0.5 mg/dL (0.2-1.3) 03/09/18 05:00 AST 37 U/L (14-36) H 03/09/18 05:00 ALT 30 U/L (7-56) 03/09/18 05:00 Alkaline Phosphatase 74 U/L (38-126) 03/09/18 05:00 NT-Pro-B Natriuret Pep 1060 pg/mL (0-450) H 03/05/18 15:25 Total Protein 7.6 g/dL (5.8-8.3) 03/09/18 05:00 Albumin 3.9 g/dL (3.0-4.8) 03/09/18 05:00 Globulin 3.7 gm/dL 03/09/18 05:00 Albumin/Globulin Ratio 1.0 (1.1-1.8) L 03/09/18 05:00 Procalcitonin 0.24 NG/ML (0.19-0.49) 03/06/18 06:30 Venous Blood Potassium 4.2 mmol/L (3.6-5.2) 03/05/18 13:00 Attending/Attestation - Attestation I have personally seen and examined this patient.: Yes I have fully participated in the care of the patient.: Yes I have reviewed all pertinent clinical information, including history, physical exam and plan: Yes Notes (Text): 03/09/18 16:09 Attending note /covering Dr. Mcclellan; Patient seen and examined with resident. Patient does not communicate much. Patient's daughter by the bedside. Patient is afebrile and nontoxic. Patient is an 82 year old female with a history of dementia who presented to the ED with SOB and cough. She was found to have LLL pneumonia. Currently on IV Rocephin and Zithromax. ID evaluation appreciated. Continue oxygen when necessary. Continue DuoNeb treatment. Patient will be discharged home with by mouth Vantin and Zithromax. Pulmonary evaluation appreciated. Discharge home today. Upon discharge patient will follow-up with PMD Dr. mcclellan.
--- NOTE | 2018-03-09 14:52 | CP.PCM.PN ---
Subjective - Date & Time of Evaluation Date of Evaluation: 03/09/18 Time of Evaluation: 10:45 - Subjective Subjective: Comfortable in bed, not in distress, eating better, no vomiting, no diarrhea, not in distress. Objective - Vital Signs/Intake and Output Vital Signs (last 24 hours): Temp Pulse Resp BP Pulse Ox 98.6 F 95 H 20 128/64 96 03/09/18 08:35 03/09/18 08:35 03/09/18 08:35 03/09/18 08:35 03/09/18 08:35 Intake and Output: 03/09/18 03/09/18 06:59 18:59 Intake Total 830 Balance 830 - Medications Medications: Current Medications Acetaminophen (Tylenol 650 Mg Supp) 650 mg RC Q4H PRN PRN Reason: Fever >100.4 F Last Admin: 03/08/18 09:45 Dose: 650 mg Albuterol/Ipratropium (Duoneb 3 Mg/0.5 Mg (3 Ml) Ud) 3 ml IH [id number] JENNIFER Last Admin: 03/09/18 08:14 Dose: 3 ml Albuterol/Ipratropium (Duoneb 3 Mg/0.5 Mg (3 Ml) Ud) 3 ml IH Q2H PRN PRN Reason: Shortness of Breath Ceftriaxone Sodium (Rocephin 1 Gram Ivpb) 1 gm in 100 mls @ 100 mls/hr IVPB DAILY JENNIFER; Protocol Last Admin: 03/08/18 09:46 Dose: 100 mls/hr Azithromycin (Zithromax 500mg In Ns) 500 mg in 250 mls @ 167 mls/hr IVPB DAILY JENNIFER; Protocol Last Admin: 03/08/18 10:37 Dose: 167 mls/hr Tobramycin Sulfate (Tobrex 0.3% Oph Soln) 1 drop OD BID JENNIFER Last Admin: 03/08/18 18:19 Dose: 1 drop - Labs Labs: 03/09/18 05:00 03/09/18 05:00 - Constitutional Appears: No Acute Distress, Chronically Ill - Head Exam Head Exam: NORMAL INSPECTION - Neck Exam Neck Exam: absent: Meningismus - Respiratory Exam Respiratory Exam: Decreased Breath Sounds - Cardiovascular Exam Cardiovascular Exam: +S1, +S2 - GI/Abdominal Exam GI & Abdominal Exam: Soft. absent: Tenderness Assessment and Plan - Assessment and Plan (Free Text) Plan: Assessment sepsis due to left lower lobe community-acquired pneumonia, clinically improving history of HCAP right sided, with acute bronchitis Alzheimer's dementia seizure disorder recent pneumonia Plan on Rocephin and Zithromax day 4; blood cx negative; PCT is 0.24 can switch to PO Vantin and Zithromax for another 5 days with outpatient follow up with PMD - discussed this with the patient's son at bedside
--- NOTE | 2018-03-13 07:27 | PQF ---
PROVIDER RESPONSE TEXT: As per pulm REVIEWER QUERY TEXT: Pneumonia Specificity Pneumonia is documented in the Medical Record. Please specify the type of pneumonia and the causative organism (includes probable or suspected) Such as: Type: -- Aspiration pneumonia (please also specify the aspirate) - (please specify cause) - Please indicate if the aspiration is postprocedure -- Bacterial (please document suspected or probable organism) -- Bronchopneumonia (please document suspected or probable organism) -- Interstitial pneumonia -- Organizing pneumonia / BOOP -- Pneumonia with influenza, duglas flu, or H1N1 flu -- RSV -- Tuberculosis, pulmonary -- Viral -- Other, please specify The patient's Clinical Indicators include: Patient admitted with diagnosis of pneumonia. Based on hx of dementia, non-verbal, difficulty with food and fluids, cough/SOB, could you please spe cify if this is an aspiration pneumonia? Query created by: Anita Ramirez on 03/06/2018 10:49 AM Electronically signed by: Thanh Lassiter DO 03/13/2018 7:23 AM
== END 2018-03-09 16:22 | disposition home or self-care (01) | DRG 194 ==
LOC: ED 11:38 → ERH 14:57 → 3RSO 18:29
PROVIDERS: ADMIT Internal Medicine; ATTEND Internal Medicine
PROC: 3E0F7GC Introduction of Other Therapeutic Substance into Respiratory Tract, Via Natural or Artificial Opening (ICD-10-PCS; principal; 2018-03-05)
DX: J18.9 Pneumonia, unspecified organism (principal); R64 Cachexia; F02.80 Dementia in other diseases classified elsewhere, unspecified severity, without behavioral disturbance, psychotic disturbance, mood disturbance, and anxiety; G30.9 Alzheimer's disease, unspecified; R54 Age-related physical debility; Z74.01 Bed confinement status; G40.909 Epilepsy, unspecified, not intractable, without status epilepticus; Z87.01 Personal history of pneumonia (recurrent); J20.9 Acute bronchitis, unspecified; Z68.20 Body mass index [BMI] 20.0-20.9, adult

== ENCOUNTER 2018-08-15 10:49 | Emergency (ER) | payer MEDICARE, MEDICAID ==
[2018-08-15 11:03] VITALS: BMI 20.2
[2018-08-15 11:09] VITALS: BP 107/59; PULSE 75; RESP 18; TEMP 98; O2SAT 98
--- NOTE | 2018-08-15 11:43 | ED PDOC ---
Arrival/HPI - General Chief Complaint: Lower Extremity Problem/Injury Time Seen by Provider: 08/15/18 10:57 Historian: Family - History of Present Illness Narrative History of Present Illness (Text): 08/15/18 11:36 82 f with hx dementia (advanced and nonverbal) presents from home for evaluation of bruising of the left ankle. As per the family members at bedside providing hx they noticed the bruising yesterday. It is suspected that when the patient was being transferred from sitting to bathroom the patient may have twisted her ankle. Patient is nonverbal and cannot provide any relevant hx. No other suspected injury sustained. Time/Duration: Other (Yesterday) Symptom Onset: Sudden Symptom Course: Unchanged Activities at Onset: Rest, Light Context: Home Past Medical History - Provider Review Nursing Documentation Reviewed: Yes - Past History Past History: No Previous - Infectious Disease Hx of Infectious Diseases: None - Cardiac Hx Cardiac Disorders: No - Pulmonary Hx Pneumonia: Yes - Neurological Hx Alzheimer's Disease: Yes Hx Dementia: Yes Hx Seizures: Yes (feb 2017) - HEENT Hx HEENT Disorder: No - Renal Hx Renal Disorder: No - Endocrine/Metabolic Hx Endocrine Disorders: No - Hematological/Oncological Hx Blood Disorders: No - Integumentary Hx Dermatological Disorder: No - Musculoskeletal/Rheumatological Hx Musculoskeletal Disorders: No Hx Falls: No - Gastrointestinal Hx Gastrointestinal Disorders: No - Genitourinary/Gynecological Hx Genitourinary Disorders: No - Psychiatric Hx Psychophysiologic Disorder: No Hx Substance Use: No - Anesthesia Hx Anesthesia: No Family/Social History - Physician Review Nursing Documentation Reviewed: Yes Family/Social History: No Known Family HX Smoking Status: Never Smoked Hx Alcohol Use: No Hx Substance Use: No Hx Substance Use Treatment: No Allergies/Home Meds Allergies/Adverse Reactions: Allergies No Known Allergies Allergy (Verified 07/23/17 19:13) Review of Systems - Physician Review All systems were reviewed & negative as marked: Yes - Review of Systems Systems not reviewed;Unavailable: Dementia Physical Exam - Physical Exam Narrative Physical Exam (Text): 08/15/18 11:43 Gen: VS reviewed, alert, well developed, well nourished, nontoxic, mild distress (every patient is mild distress unless otherwise stated) Do not place this statement in any chart Eye: EOMI, PERRL Neck: no JVD, supple, no adenopathy Ext: no edema, there is mild bruising to the left anerior ankle and medical ankle, there is mild edema of the medial malleolus, unable to elicit any painful response from the patient, there is no bruising of the lateral malleolus Skin: good color, no rash, no cyanosis Psych: responds appropriately to questions, normal affect Neuro: oriented x3, CN2-12 intact grossly, motor intact, sensation intact Physical Exam Limitations: Other (Dementia) Vital Signs Reviewed: Yes Vital Signs Temp Pulse Resp BP Pulse Ox 08/15/18 11:09 98.0 F 75 18 107/59 L 98 Temperature: Afebrile Blood Pressure: Hypotensive Pulse: Regular Respiratory Rate: Normal Appearance: Positive for: Well-Appearing, Non-Toxic, Comfortable Pain Distress: None Mental Status: Positive for: Alert and Oriented X 3 Medical Decision Making ED Course and Treatment: 08/15/18 11:44 patient seen for bruising of the left ankle, likely traumatic. patient is essentially bedbound and further injury from ambulation is not a concern. ddx including but not limited to fx vs ligament injury 08/15/18 13:13 family is willing to take patient home and will be sure to avoid weight bearing. they will follow up with orthopedic surgeon.they understand that splinting is used to protect from further injury but since the patient is non weight bearing at baseline, splinting would not necessarily add to fracture care is this clinical situation. 08/15/18 13:14 - RAD Interpretation Narrative RAD Interpretations (Text): 08/15/18 12:47 Procedure: Ankle X-ray Dictator: Raymond Bruce Impression: Incomplete transverse fracture inferior tip medial malleolus as above. Radiology Orders: 08/15/18 10:58 ANKLE LEFT 3 VIEWS ROUTINE [RAD] Stat Manager Fixed Income: Radiologist Disposition/Present on Arrival - Present on Arrival Any Indicators Present on Arrival: No History of DVT/PE: No History of Uncontrolled Diabetes: No Urinary Catheter: No History of Decub. Ulcer: No History Surgical Site Infection Following: None - Disposition Have Diagnosis and Disposition been Completed?: Yes Diagnosis: Medial malleolar fracture Disposition: HOME/ ROUTINE Disposition Time: 13:16 Patient Plan: Discharge Patient Problems: Current Active Problems Problem Status Onset Alzheimer's dementia Resolved Condition: STABLE Discharge Instructions (ExitCare): Ankle Fracture Additional Instructions: follow up with the orthopedic surgeon, preferably within one week. please avoid putting any weight on the affected foot. Referrals: Antoinette Kohli MD [Staff Provider] - Follow up with primary Stanton Cook DO [Staff Provider] - Follow up with primary Forms: [facility] ([place]), WORK NOTE
--- NOTE | 2018-08-15 12:39 | RAD ---
Date of service: 08/15/2018 PROCEDURE: Left Ankle Radiographs. HISTORY: bruise,?fracture COMPARISON: None available. FINDINGS: BONES: Incomplete transverse fracture inferior tip medial malleolus with fracture line beginning at the lateral aspect of the medial malleolus. There is associated soft tissue swelling. Bones are demineralized. There is a large os trigonum. Achilles calcaneal enthesophyte noted. There is a plantar calcaneal spur. JOINTS: No dislocation seen. Ankle mortise maintained. Degenerative changes noted of the talonavicular joint as well as the tarsal bones. SOFT TISSUES: There are vascular calcifications. OTHER FINDINGS: None. IMPRESSION: Incomplete transverse fracture inferior tip medial malleolus as above.
== END 2018-08-15 13:30 | disposition home or self-care (01) ==
LOC: ED 10:49
DX: S82.52XA Displaced fracture of medial malleolus of left tibia, initial encounter for closed fracture (principal); X58.XXXA Exposure to other specified factors, initial encounter

== ENCOUNTER 2018-08-29 12:38 | Emergency (ER) | payer MEDICARE, MEDICAID ==
[2018-08-29 12:56] VITALS: BMI 20.2
[2018-08-29 13:04] VITALS: TEMP 98.3
--- NOTE | 2018-08-29 13:26 | ED PDOC ---
Arrival/HPI - General Chief Complaint: Abnormal Skin Integrity Historian: Patient - History of Present Illness Narrative History of Present Illness (Text): 08/29/18 13:43 82 y/o female, pmh including alzheimer with advanced demantia, nkda, bib son for rt. breast/chest bruising s/p the son trying to lift her too hard to prevent her from falling yesterday. Pt. is eating and drinking well, no nausea/vomiting, refused to have bed riojas and always request to have lift to the bathroom for bowel movement. Son stated that she didn't have any fall or trauma, just catch her too hard yesterday and noticed the bruising last evening and again today. Pt. has no change in mental status or energy level. Past Medical History - Provider Review Nursing Documentation Reviewed: Yes - Past History Past History: No Previous - Infectious Disease Hx of Infectious Diseases: None - Reproductive Menopause: Yes - Cardiac Hx Cardiac Disorders: No - Pulmonary Hx Pneumonia: Yes - Neurological Hx Alzheimer's Disease: Yes Hx Dementia: Yes Hx Seizures: Yes (feb 2017) - HEENT Hx HEENT Disorder: No - Renal Hx Renal Disorder: No - Endocrine/Metabolic Hx Endocrine Disorders: No - Hematological/Oncological Hx Blood Disorders: No - Integumentary Hx Dermatological Disorder: No - Musculoskeletal/Rheumatological Hx Musculoskeletal Disorders: No Hx Falls: No - Gastrointestinal Hx Gastrointestinal Disorders: No - Genitourinary/Gynecological Hx Genitourinary Disorders: No - Psychiatric Hx Psychophysiologic Disorder: No Hx Substance Use: No - Anesthesia Hx Anesthesia: No Family/Social History - Physician Review Nursing Documentation Reviewed: Yes Family/Social History: Unknown Family HX Smoking Status: Never Smoked Hx Alcohol Use: No Hx Substance Use: No Hx Substance Use Treatment: No Allergies/Home Meds Allergies/Adverse Reactions: Allergies No Known Allergies Allergy (Verified 07/23/17 19:13) Review of Systems - Review of Systems Systems not reviewed;Unavailable: Dementia Constitutional: absent: Fevers ENT: absent: Hearing Changes Respiratory: absent: SOB, Cough Gastrointestinal: Abdominal Pain. absent: Diarrhea, Nausea, Vomiting Musculoskeletal: absent: Arthralgias, Back Pain, Neck Pain, Joint Swelling, Myalgias Skin: Other (rt. breast/chest ecchymosis). absent: Pruritis Neurological: absent: Headache Psychiatric: absent: Anxiety, Depression, Suicidal Ideation Physical Exam Vital Signs Reviewed: Yes Vital Signs Temp Pulse Resp BP Pulse Ox 08/29/18 12:40 98.3 F 83 18 156/111 H 99 Temperature: Afebrile Blood Pressure: Hypertensive Pulse: Regular Respiratory Rate: Normal Appearance: Positive for: Well-Appearing, Non-Toxic, Comfortable Pain Distress: Mild Mental Status: Positive for: Alert and Oriented X 3 - Systems Exam Head: Present: Atraumatic, Normocephalic Pupils: Present: PERRL Extroacular Muscles: Present: EOMI Conjunctiva: Present: Normal Mouth: Present: Moist Mucous Membranes Neck: Present: Normal Range of Motion Respiratory/Chest: Present: Clear to Auscultation, Good Air Exchange, Other (mild +ttp on the rt. lateral rib cage region approx. 4th rib region with resolving ecchymosis approx. 3cm diameter). No: Respiratory Distress, Accessory Muscle Use, Wheezes, Decreased Breath Sounds, Rales, Retracting, Rhonchi, Tachypneic, Tender to Palpation Cardiovascular: Present: Regular Rate and Rhythm, Normal S1, S2. No: Murmurs Abdomen: No: Tenderness, Distention, Peritoneal Signs Back: Present: Normal Inspection Upper Extremity: Present: Normal Inspection. No: Cyanosis, Edema Lower Extremity: Present: Normal Inspection. No: Edema Neurological: Present: GCS=15, CN II-XII Intact, Speech Normal Skin: Present: Warm, Dry, Normal Color. No: Rashes Psychiatric: Present: Alert, Oriented x 3, Normal Insight, Normal Concentration Medical Decision Making ED Course and Treatment: 08/29/18 13:48 -Son stated that his mother is well, doesn't need blood work, just want xray to r/o fracture. -rt. rib and chest xray ordered. -Observe and reassess 08/29/18 15:05 -Chest xray: Abnormality of the right lateral 4th and 5th ribs may reflect acute fractures. Mild streaky atelectasis/scarring within the right lung apex. Biapical pleural thickening. -Rt. rib xray: Abnormality of the right lateral 4th and 5th ribs may reflect acute fractures. Mild streaky atelectasis/scarring within the right lung apex. Biapical pleural thickening. -xray results discussed with the son, primary care provider for his mother, advised incentive spirometer, offered admission but refused, only request non narcotic pain meds. -Discharge home with incentive spirometer, ice pack, tylenol, bed rest, follow up with your own pmd and orthopedic within 2 days, return to the ER for any new or worsening signs or symptoms. - RAD Interpretation Radiology Orders: 08/29/18 13:24 CHEST TWO VIEWS (PA/LAT) [RAD] Stat RIBS RIGHT [RAD] Stat Chest xray: HISTORY: rt. breast bruising from injury, COMPARISON: Chest x-ray performed 03/05/18 TECHNIQUE: Chest PA and lateral Right rib series, 3 views FINDINGS: LUNGS: Streaky atelectasis or scarring within the right lung apex. Biapical pleural thickening. No focal consolidation. Please note that chest x-ray has limited sensitivity for the detection of pulmonary masses. PLEURA: No significant pleural effusion identified. No definite pneumothorax . CARDIOVASCULAR: Heart size appears within normal limits. Atherosclerotic calcifications of the aorta. OSSEOUS STRUCTURES: Osseous demineralization limits evaluation for acute fracture lines. Postsurgical changes of the right humeral head. Degenerative changes of the spine. Abnormality of the right lateral 4th and 5th ribs may reflect acute fractures. VISUALIZED UPPER ABDOMEN: Unremarkable. OTHER FINDINGS: None. IMPRESSION: Abnormality of the right lateral 4th and 5th ribs may reflect acute fractures. Mild streaky atelectasis/scarring within the right lung apex. Biapical pleural thickening. Rt. rib xray: HISTORY: rt. breast bruising from injury, COMPARISON: Chest x-ray performed 03/05/18 TECHNIQUE: Chest PA and lateral Right rib series, 3 views FINDINGS: LUNGS: Streaky atelectasis or scarring within the right lung apex. Biapical pleural thickening. No focal consolidation. Please note that chest x-ray has limited sensitivity for the detection of pulmonary masses. PLEURA: No significant pleural effusion identified. No definite pneumothorax . CARDIOVASCULAR: Heart size appears within normal limits. Atherosclerotic calcifications of the aorta. OSSEOUS STRUCTURES: Osseous demineralization limits evaluation for acute fracture lines. Postsurgical changes of the right humeral head. Degenerative changes of the spine. Abnormality of the right lateral 4th and 5th ribs may reflect acute fractures. VISUALIZED UPPER ABDOMEN: Unremarkable. OTHER FINDINGS: None. IMPRESSION: Abnormality of the right lateral 4th and 5th ribs may reflect acute fractures. Mild streaky atelectasis/scarring within the right lung apex. Biapical pleural thickening. Electrical Engineering Professor: Radiologist - PA / GAMBLING COUNSELLOR / Resident Statement MD/DO has reviewed & agrees with the documentation as recorded. Disposition/Present on Arrival - Present on Arrival Any Indicators Present on Arrival: No History of DVT/PE: No History of Uncontrolled Diabetes: No Urinary Catheter: No History of Decub. Ulcer: Yes (old skin breakdown to sacral) History Surgical Site Infection Following: None - Disposition Have Diagnosis and Disposition been Completed?: Yes Diagnosis: Rib fractures Disposition: HOME/ ROUTINE Disposition Time: 15:26 Patient Plan: Discharge Condition: GOOD Additional Instructions: -Discharge home with incentive spirometer, ice pack, tylenol, bed rest, follow up with your own pmd and orthopedic within 2 days, return to the ER for any new or worsening signs or symptoms. Prescriptions: Acetaminophen [Tylenol] 2 cap PO QID PRN #30 capsule PRN Reason: Other Referrals: Spencer Ayala III, MD [Medical Doctor] - Follow up with primary [facility] [Outside] - Follow up with primary Forms: [employer] (Wolof)
[2018-08-29 13:42] VITALS: O2SAT 100
--- NOTE | 2018-08-29 15:05 | RAD ---
HISTORY: rt. breast bruising from injury, COMPARISON: Chest x-ray performed 03/05/18 TECHNIQUE: Chest PA and lateral Right rib series, 3 views FINDINGS: LUNGS: Streaky atelectasis or scarring within the right lung apex. Biapical pleural thickening. No focal consolidation. Please note that chest x-ray has limited sensitivity for the detection of pulmonary masses. PLEURA: No significant pleural effusion identified. No definite pneumothorax . CARDIOVASCULAR: Heart size appears within normal limits. Atherosclerotic calcifications of the aorta. OSSEOUS STRUCTURES: Osseous demineralization limits evaluation for acute fracture lines. Postsurgical changes of the right humeral head. Degenerative changes of the spine. Abnormality of the right lateral 4th and 5th ribs may reflect acute fractures. VISUALIZED UPPER ABDOMEN: Unremarkable. OTHER FINDINGS: None. IMPRESSION: Abnormality of the right lateral 4th and 5th ribs may reflect acute fractures. Mild streaky atelectasis/scarring within the right lung apex. Biapical pleural thickening.
[2018-08-29 15:52] VITALS: BP 133/69; PULSE 80; RESP 19
== END 2018-08-29 15:50 | disposition home or self-care (01) ==
LOC: ED 12:38
DX: S22.31XA Fracture of one rib, right side, initial encounter for closed fracture (principal); X50.9XXA Other and unspecified overexertion or strenuous movements or postures, initial encounter